=== PATIENT | female | born 1970 | race Caucasian/White ===

== ENCOUNTER → 2023-09-16 14:51 | Outpatient (REF) | payer OTHER, SELFPAY | LOC: HWWDC 14:51 | PROVIDERS: ATTENDING PHYSICIAN Family Medicine | DX: Z12.31 Encounter for screening mammogram for malignant neoplasm of breast (principal) | CPT/HCPCS: 77063; 77067 ==

== ENCOUNTER → 2024-01-11 15:58 | Outpatient (REF) | payer OTHER, SELFPAY | LOC: HWRCS 15:58 | PROVIDERS: ATTENDING PHYSICIAN Family Medicine | DX: R01.1 Cardiac murmur, unspecified (principal) | CPT/HCPCS: 93306 ==

== ENCOUNTER → 2024-01-31 09:44 | Outpatient (REF) | payer OTHER, SELFPAY | LOC: RCS 09:44 | PROVIDERS: ATTENDING PHYSICIAN Internal Medicine Cardiovascular Disease; FAMILY PHYSICIAN Family Medicine | DX: I34.0 Nonrheumatic mitral (valve) insufficiency (principal) | CPT/HCPCS: 93017 ==

== ENCOUNTER → 2024-04-06 07:18 | Outpatient (REF) | payer OTHER, SELFPAY | LOC: HWRCS 07:18 | PROVIDERS: ATTENDING PHYSICIAN Internal Medicine Cardiovascular Disease; FAMILY PHYSICIAN Family Medicine | DX: I42.1 Obstructive hypertrophic cardiomyopathy (principal) | CPT/HCPCS: 93306 ==

== ENCOUNTER → 2024-08-18 13:13 | Outpatient (REF) | payer OTHER, SELFPAY | LOC: HWRCS 13:13 | PROVIDERS: ATTENDING PHYSICIAN Internal Medicine Cardiovascular Disease; FAMILY PHYSICIAN Family Medicine | DX: I42.1 Obstructive hypertrophic cardiomyopathy (principal) | CPT/HCPCS: 93306 ==

== ENCOUNTER 2024-11-15 07:59 | Day surgery (SDC) | payer OTHER, SELFPAY ==
[2024-11-15] VITALS (7 sets, daily range): BP systolic 122–144; BP diastolic 59–73
[2024-11-15] MEDS: NSS 240 ML IV (08:39)
--- NOTE | 2024-11-15 11:23 | ITS.CL.CATH ---
Manager Of Training And Development - Catheterization
Cardiac Catheterization
Procedure Report:
CARDIAC CATHETERIZATION REPORT
Date of Procedure: 11/15/2024
Referring: Manolo Coker M.D.
INDICATION: Hypertrophic obstructive cardiomyopathy with systolic anterior motion and severe mitral regurgitation, preoperative assessment.
PROCEDURE:
1. Left heart catheterization.
2. Left ventriculography.
3. Coronary angiography.
A total of 34 minutes of procedural/moderate sedation was utilized. An independent medical researcher was present to assist with and help manage the patient's level of consciousness and physiologic status.
ACCESS:
1. 6 [place]i right radial artery using a modified Seldinger technique.
CATHETERS:
1. 5 [place] JR4.
2. 5 [place] JL 3.5.
3. 5 [place] angled pigtail.
HEMODYNAMIC DATA
Weight (kg): 79.4
AO (s/d/x, mmHg): 125/70/92
LV (s/x mmHg): 205/14 (A wave to 40); a mid cavitary gradient is observed on slow catheter pullback with no significant gradient between the LVOT, aortic valve and aortic root.
LVOT (s/x mmHg): 125/14 (A wave to 40)
LEFT VENTRICULOGRAPHY: Performed in an KNIGHT projection. Normal left ventricular size with hyperdynamic function with evidence of mid cavitary obliteration. There are no regional wall motion abnormalities. There is severe mitral valve
regurgitation. There is no aortic valve insufficiency. The aortic root, visualized ascending and descending aorta appear normal.
CORONARY ANGIOGRAPHY
Dominance: Right.
Left Main: Short, wide, bifurcating vessel with no coronary artery disease.
LAD: Large size vessel giving rise to 1 large diagonal. 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 There is no coronary artery disease.
Ramus: Congenitally absent.
Circumflex: Large size, nondominant vessel giving rise to 1 large obtuse marginal before terminating as a small to medium size left posterolateral branch. There is no coronary artery disease. The obtuse marginal is moderate to severely tortuous.
RCA: Large size, dominant vessel. The distal RCA and RPDA are severely tortuous. There is no coronary artery disease.
INTERVENTION(S)
None.
Closure Device: Vascular band.
Radiation (mGy): 272.83
DAP (cm2.Gy): 24.2534
Fluoroscopy time (minutes): 3.5
CONCLUSIONS
1. 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
2. Severe mitral valve regurgitation.
3. Mildly elevated filling pressures (LVEDP = 14 mmHg at 79.4 kg) with evidence of severe diastolic dysfunction (A wave to 40 mmHg).
4. Normal left ventricular size with hyperdynamic function and evidence of mid cavitary obliteration on left ventriculography, confirmed with mid cavitary gradient observed on slow pullback of catheter. There is no significant gradient between the
LVOT, aortic valve and aortic root.
RECOMMENDATIONS:
1. Expectant management after cardiac catheterization via right radial approach.
2. Limited weight bearing on the right wrist for one week.
3. Continue surgical planning for myomectomy and possible mitral valve repair.
Copy to: Fer Saravia M.D., Manolo Coker M.D., Rita Zamarripa M.D.
Delfino Olivo DO, FACC, FACP
== END 2024-11-15 12:45 | disposition home or self-care (01) ==
LOC: CATH 07:59
PROVIDERS: ATTENDING PHYSICIAN Internal Medicine Cardiovascular Disease; FAMILY PHYSICIAN Family Medicine; OTHER PHYSICIAN Internal Medicine Cardiovascular Disease
DX: I42.1 Obstructive hypertrophic cardiomyopathy (principal); I34.0 Nonrheumatic mitral (valve) insufficiency; G43.009 Migraine without aura, not intractable, without status migrainosus; F41.9 Anxiety disorder, unspecified; Z79.85 Long-term (current) use of injectable non-insulin antidiabetic drugs; Z79.82 Long term (current) use of aspirin
CPT/HCPCS: 99152; 99153; C1894; 93005; 93458; Q9967

== ENCOUNTER 2024-11-21 04:56 | Inpatient (IN) | payer OTHER, SELFPAY ==
[2024-11-14 12:18] VITALS: BMI 28.2
[2024-11-14 13:05] LABS: Hematocrit 33.7 % (37.0-47.0); Hemoglobin 11.8 g/dL (12.0-16.0); Mean Corp Hgb Conc. 35.0 g/dL (33.0-37.0); Mean Corpuscular Volume 88.0 fL (81.0-99.0); Nucleated Red Blood Cells % 0 %; Platelet Count 182 10^3/uL (130-400); Red Cell Dist. Width 12.1 % (11.5-14.5)
[2024-11-14 13:09] LABS: Urine Character Clear (Clear)
[2024-11-14 13:16] LABS: Urine Red Blood Cell 0-2 /HPF (0-2); Urine White Cell 0-2 /HPF (0-5)
[2024-11-14 13:17] LABS: INR 0.96; PT 13.1 Sec (11.4-14.6)
[2024-11-14 14:21] LABS: Glycohemoglobin (HgbA1c) 4.4 % (4.0-5.6)
--- NOTE | 2024-11-14 14:40 | CM ---
Met with Mrs. Treviño in [facility]. She states she resides with her spouse and daughter in a two story home with two steps to enter. She states she has a full flight of steps to get to bedroom/full bathroom. She states she has a powder room on the
fist floor. She states prior to admission she was independent with ambulation and adls. She states she does not have any DME in the home. She states she has a prescription plan. She states her spouse will be home to assist in her care if needed.
She states her 26 year old daughter is here visiting and she will also be home to assist in her care if needed. The discharge plan is to return home with her spouse and daughter and a home visit by the Transitional Care Nurse when medically stable.
We reviewed pre-op and post-op routines. We reviewed the shower instructions. She has the soap, written instructions and the Cardiothoracic Surgery Educational Booklet. We also reviewed restrictions including sternal precautions and driving
restrictions. We discussed a home visit by the Cardiothoracic Transitional Care Nurse. She is agreeable to a home visit. The plan is for Septal Myectomy on Wednesday11/21/2024.
[2024-11-14 14:45] LABS: ALT (SGPT) 12 U/L (0-35); AST (SGOT) 25 U/L (14-36); Albumin 4.1 g/dl (3.5-5.0); Alkaline Phosphatase 60 U/L (38-126); Blood Urea Nitrogen 11 mg/dl (7-17); Calcium 9.1 mg/dl (8.4-10.2); Carbon Dioxide 27 mmol/L (22-30); Chloride 99 mmol/L (98-107); Estimated Creatinine Clearance 119 ml/min; Glucose 71 mg/dl (70-99); Potassium 4.8 mmol/L (3.5-5.1); Sodium 131 mmol/L (135-145); Total Protein 6.5 g/dl (6.3-8.2); eGFR > 60.00
[2024-11-21] VITALS (13 sets, daily range): BP systolic 89–144; BP diastolic 56–71; BMI 26.8
[2024-11-21] MEDS: MAGNESIUM OXIDE 500 MG PO (05:24)
[2024-11-21] MEDS: PROTONIX 40 MG PO (05:24)
[2024-11-21] MEDS: BACTROBAN 2% OINTMENT 1 APPLIC NASAL ×2 (05:24→20:49)
--- NOTE | 2024-11-21 05:35 | PTCARENOTE ---
pt admitted into CVICU 2262. pt confirmed 2 showers at home. pt clipped and prepped for CVOR. CHG wipes. pre-op meds given. pre-op education provided. all questions answered. head correction officer to CVOR.
[2024-11-21] MEDS: LOPRESSOR 12.5 MG PO (06:13)
--- NOTE | 2024-11-21 06:15 | W.CVOR.SURPR ---
CVOR Surgeon Immed Pre Op
-
I have examined this patient prior to performance of the scheduled procedure.
The patient's condition is unchanged from the time of the dictated/written History and
Physical and the patient is able to undergo the scheduled procedure.
Septal Myectomy for Severe LVOT gradient and CASSIE with Severe MR +/- MVrR
[2024-11-21 07:32] LABS: Urine Character Clear (Clear)
[2024-11-21 07:34] LABS: ACT+ - POC 98 Seconds (82-134)
--- NOTE | 2024-11-21 08:08 | CM ---
pt in OR today, cm to follow
[2024-11-21 08:30] LABS: B.E. - POC 0.4 mmol/L; Glucose - POC 85 mg/dl (70-99); HCO3 - POC 25 mmol/L (21-28); Hematocrit - POC 28 % PCV (37-47); Hemodilution- POC No; Hemoglobin Calculated - POC 9.4; Ionized Calcium - POC 1.20 mmol/L (1.15-1.33); Lactate - POC < 0.30 mmol/L (0.36-0.75); O2 Saturation %Calculated-POC 100.0 % (94-98); PCO2 - POC 39 mmHg (35-48); PO2 - POC 451 mmHg (83-108); Potassium - POC 3.5 mmol/L (3.5-5.1); Sodium - POC 140 mmol/L (136-145); Specimen Type - POC Arterial; pH - POC 7.41 (7.35-7.45)
[2024-11-21 08:32] LABS: ACT+ - POC > 1003 Seconds (82-134)
[2024-11-21 08:51] LABS: ACT+ - POC 963 Seconds (82-134)
[2024-11-21 09:06] LABS: ACT+ - POC 861 Seconds (82-134)
[2024-11-21 09:22] LABS: ACT+ - POC 748 Seconds (82-134)
[2024-11-21] MEDS: ANCEF 10 IV ×2 (09:37→12:03)
[2024-11-21 09:39] LABS: B.E. - POC 2.1 mmol/L; Glucose - POC 113 mg/dl (70-99); HCO3 - POC 27 mmol/L (21-28); Hematocrit - POC 27 % PCV (37-47); Hemodilution- POC Yes; Hemoglobin Calculated - POC 9.3; Ionized Calcium - POC 1.08 mmol/L (1.15-1.33); Lactate - POC 0.51 mmol/L (0.36-0.75); O2 Saturation %Calculated-POC 99.9 % (94-98); PCO2 - POC 42 mmHg (35-48); PO2 - POC 313 mmHg (83-108); POC Comment WARM; Potassium - POC 5.0 mmol/L (3.5-5.1); Sodium - POC 141 mmol/L (136-145); Specimen Type - POC Arterial; pH - POC 7.42 (7.35-7.45)
[2024-11-21 09:44] LABS: ACT+ - POC 120 Seconds (82-134)
[2024-11-21 10:16] LABS: B.E. - POC 6.4 mmol/L; Glucose - POC 93 mg/dl (70-99); HCO3 - POC 29 mmol/L (21-28); Hematocrit - POC 26 % PCV (37-47); Hemodilution- POC Yes; Hemoglobin Calculated - POC 9.0; Ionized Calcium - POC 1.06 mmol/L (1.15-1.33); Lactate - POC < 0.30 mmol/L (0.36-0.75); O2 Saturation %Calculated-POC 100.0 % (94-98); PCO2 - POC 33 mmHg (35-48); PO2 - POC 481 mmHg (83-108); POC Comment CPB; Potassium - POC 3.6 mmol/L (3.5-5.1); Sodium - POC 140 mmol/L (136-145); Specimen Type - POC Arterial; pH - POC 7.55 (7.35-7.45)
[2024-11-21 10:17] LABS: B.E. - POC 3.3 mmol/L; Glucose - POC 87 mg/dl (70-99); HCO3 - POC 28 mmol/L (21-28); Hematocrit - POC 27 % PCV (37-47); Hemodilution- POC Yes; Hemoglobin Calculated - POC 9.3; Ionized Calcium - POC 1.08 mmol/L (1.15-1.33); Lactate - POC < 0.30 mmol/L (0.36-0.75); O2 Saturation %Calculated-POC 100.0 % (94-98); PCO2 - POC 40 mmHg (35-48); PO2 - POC 352 mmHg (83-108); POC Comment CPB; Potassium - POC 4.1 mmol/L (3.5-5.1); Sodium - POC 140 mmol/L (136-145); Specimen Type - POC Arterial; pH - POC 7.45 (7.35-7.45)
--- NOTE | 2024-11-21 10:21 | W.PN.CT.SURG ---
CT Surgery Operative Note
-
CARDIAC SURGERY OPERATIVE REPORT
Preoperative Diagnosis: HOCM with LVOT obstruction and severe gradients, systolic anterior motion of the mitral valve with severe insufficiency
Postoperative Diagnosis: Same
Procedure(s) Performed:
1. Standard sternotomy with aortic and bicaval cannulation
2. Septal myectomy through the aortic root (resected a 1 cm deep x 3 cm long by 2 cm wide segment of muscle)
3. Radical mitral valve repair through the aortic root [resection of secondary cords on the anterior leaflet and placement of a Star Tannery-John suture from the most posterior papillary muscle head to the free margin of the anterior leaflet]
4. Placement temporary atrial ventricular pacing wires
5. Transesophageal echocardiography
Date of Surgery: 11/21/2024
Comorbidities:
1. Hypertrophic obstructive cardiomyopathy
2. Systolic anterior motion of the mitral valve
3. Severe LVOT gradient of over 100mmHg during provocation
4. Severe mitral valve insufficiency secondary to CASSIE
5. Depression/anxiety
6. Migraines
7. Family history of premature related to cardiovascular disease
Attending Surgeon: Fer Saravia MD, MS
Assistants: PARI Trotter (present and necessary to care assistant, retraction, suction, exposure, suture management, and wound closure under my direction)
Anesthesiology: Rogelio Robbins MD and Kong Schwab CRNA
Scrub and Circulating RNs: Nikhil Miller RN, Gopi Adkins RN
Asbestos Siding Installer: Radha Nelson CCP
Anesthesia: GETA
EBL: per perfusion records
Products: 1 prbc
CPB Time: 57 minutes
Aortic Cross Clamp Time: 39 minutes
Indication(s) for Procedures: This is a 52-year-old female with no significant medical history has been experiencing more lightheadedness and shortness of breath. She has known hypertrophic obstructive cardiomyopathy with worsening LVOT gradients
on serial echocardiograms. The most recent LVOT gradient had a resting mean gradient of 91 mmHg and a provoked gradient of well over 100 mmHg. She had associated systolic anterior motion of mitral valve leaflets with severe mitral valve
insufficiency. Given her findings, she was referred for consideration of septal myectomy and possible mitral valve repair.
Aortic Valve Description: Normal leaflets, left and right coronary ostia normal anatomic positions. The LVOT had evidence of scarring on the septal aspect from repeated collision to the antilipid the mitral valve.
Mitral Valve Description: Thickened anterior leaflet of the mitral valve with multiple secondary cords.
Findings: Her left ventricular ejection fraction preoperatively was 65% with no significant regional wall motion abnormalities. She did have moderate to severe left ventricular hypertrophy that was concentric with a large prominent septal bulge
that measured over 2 cm in thickness. Additionally her papillary muscle heads appeared to be somewhat displaced from a normal anatomic position. She had evidence of systolic anterior motion of the anterior leaflet and normal pressures. Her LVOT
gradient while under anesthesia here was not impressive. I performed an aortotomy and then place a single silk suture underneath the right coronary cusp in order to retract out of the way. Using a 10 blade an aggressive myectomy was performed
while pushing pressure anteriorly on the heart downward. The resection was carried down to approximately 3 cm in length and 2 cm wide. The mitral valve was assessed and secondary cords upon the anterior leaflet were resected. The LVOT was
thoroughly irrigated in order to move any debris. The right heart was then filled in order to assess for any iatrogenic VSD and none was found. After I felt the myectomy was adequate, I placed a single Star Tannery-John suture to the most posterior
palpated muscle head I could find and anchored it to the anterior leaflet at the free margin at A2. The aortotomy was closed in 2 layers in the usual fashion. After coming off cardiopulmonary bypass, there was no systolic anterior motion of the
mitral valve leaflets, there was trace mitral valve insufficiency, and the turbulence across the LVOT appeared to be significantly improved. We then looked carefully for ventricular septal defect and then was found. There was some intracardiac
flow of septal perforating vessels that were cut as part of the myectomy which was expected. Given that she was anemic preoperatively I did give her 1 unit of PRBCs on pump. A&V wires were placed and were tested however that she did not require
pacing as she regained her elem sinus rhythm. No inotropic support was required. She was started preemptively on amiodarone for rate suppression. There was 1 ventricular fibrillation event likely secondary to air entrainment to the right
coronary ostium. Once blood pressure was driven up this resolved and RV function was normal. No defibrillation was required.
Specimen(s): Septal myocardium.
Prosthesis:
1. Single CV 4 Star Tannery-John
Description of Procedure: The patient was taken to the operating room. Their identity and procedure to be performed were verified and they were positioned supine on the operating table. Induction via general anesthesia with endotracheal intubation
was performed and central venous access and arterial monitoring were inserted. A preoperative transesophageal echocardiogram was performed to assess cardiac function and valvular function. The patient was then prepped and draped from chin to feet in
a sterile fashion. A preoperative time-out was performed with all members of the team present. A midline chest incision was performed along with median sternotomy. The innominate vein was isolated. Full heparinization was given (a total of 45,000
units). We created a pericardial well. The aortic cannulation site was chosen where it was soft, pliable, and free of calcium. Cannulation was performed with an arterial cannula in the ascending aorta, angled metal tip cannular in the superior vena
cava and straight bendable cannula in the inferior vena cava. The arterial cannula line had an appropriate bounce and correlating pressures. Next, a root vent/antegrade cannula was inserted into the ascending aorta. The ACT was confirmed to be over
400 and retrograde autologous priming was performed before commencing cardiopulmonary bypass. The pulmonary artery was away from the aorta to facilitate a clamp site. Sondergaard�s groove was developed after creating the oblique sinus. A
left ventricular vent was placed at the right superior pulmonary vein. The aortic cross-clamp was placed after decreasing the flow on the bypass and mean arterial pressure. A total of 1.2L initial dose of antegrade Del-Nido cardioplegia solution was
given and planned for re-dosing every 75 minutes as necessary. There was rapid electro-mechanical arrest of the heart at 450 cc of cardioplegia. The left ventricle was observed for distention on echocardiogram and manual palpation. Cold slush was
placed into a lap on the RV and we systemically cooled to 34 degrees centigrade.
Carbon dioxide was used to flood the field. We manually identified the location of the right coronary take off. An aortotomy was made approximately 2cm above the sinotubular junction. The location of both left and right coronary vessels were
visualized in the root. A single silk suture was then placed below the jd of the right coronary cusp in order to retract the leaflet out of the way. A sponge stick was then placed on the anterior surface of the heart and gently pushed down
posteriorly. Using a 10 blade, I directly incised the septum in 2 [address] and then use scissors in order to resect the rest of the myocardial tissue to a length of approximately 3 cm. Additional resection was then performed until I obtained
approximate 1 cm in depth and 2 cm wide. The mitral valve was then inspected and there were multiple secondary cords to the under/ventricular surface of the mitral valve. These were then resected. In order to promote a more posterior coaptation
line, a single CV 4 Star Tannery-John was then placed to the most posterior papillary muscle head I could find and anchored to the anterior leaflet of the mitral valve at the free margin. I used surrounding cords in order to estimate the length. Next the
leaflets of the aortic valve were then inspected to ensure that there was no iatrogenic injuries. I also filled the heart in order to inspect for an iatrogenic ventricular septal defect and then was found. The aortotomy was then closed in 2 layers
using 4-0 Prolene in the usual fashion.
De-airing maneuvers were performed and temporary atrial and ventricular pacing wires were placed at the SVC/RA junction and base of the right ventricle, respectively. The patient was placed in a Trendelenburg position and flows on bypass were
lowered. The aortic cross clamp was removed and flows were slowly brought back up. The left atrial suture line was hemostatic. Transesophageal echocardiography revealed no evidence of systolic anterior motion and ventricular function was normal.
There was no obvious ventricular septal defect seen. There was some perforating vessels in the septum that had flow into the LV during diastole which was expected. Once de-airing was satisfactory the left ventricular and root vents were removed.
After verifying acceptable parameters, we initiated weaning from cardiopulmonary bypass. Once we were off cardiopulmonary bypass, the venous cannulas was clamped and removed sequentially. A test dose of protamine was administered and the patient was
monitored for any adverse reaction before resuming protamine. Once half of the protamine dose was delivered, pump suckers were turned off and the systolic blood pressure was lowered for aortic decannulation. The aortic cannula was removed and purse
strings were tied down. All cannulation sites were oversewn with a 4-0 prolene. The left atrial suture line was inspected and hemostasis was confirmed. Mediastinal hemostasis was obtained. Two #24 Marty drains were placed within the pericardium. The
sternum was approximated with 4 #7 single and 3 #8 double stainless steel wires. Fascia was approximated with #1 vicryl suture. The subcutaneous, dermis and epidermis were closed in layers in a running fashion. The skin wound was cleansed and
dressed.
All instrument, sponge, and needle counts were confirmed to be correct x 2 at the end of the operation. The patient was transferred to the cardiac intensive care unit in critical but stable condition.
I, Dr. Fer Saravia, was present, scrubbed for, and performed all critical elements of this procedure.
Fer Saravia MD, MS
Cardiothoracic Surgeon
[facility]
This dictation was created using the [employer] dictation system. Please excuse any grammatical, typographical, or 'sound alike' errors
[2024-11-21 10:29] LABS: B.E. - POC 3.4 mmol/L; Glucose - POC 96 mg/dl (70-99); HCO3 - POC 27 mmol/L (21-28); Hematocrit - POC 25 % PCV (37-47); Hemodilution- POC Yes; Hemoglobin Calculated - POC 8.4; Ionized Calcium - POC 1.29 mmol/L (1.15-1.33); Lactate - POC < 0.30 mmol/L (0.36-0.75); O2 Saturation %Calculated-POC 100.0 % (94-98); PCO2 - POC 37 mmHg (35-48); PO2 - POC 508 mmHg (83-108); POC Comment POST; Potassium - POC 3.7 mmol/L (3.5-5.1); Sodium - POC 142 mmol/L (136-145); Specimen Type - POC Arterial; pH - POC 7.48 (7.35-7.45)
[2024-11-21 11:00] LABS: Glucose - Point of Care 146 mg/dl (70-99)
[2024-11-21 11:09] LABS: Hematocrit 29.4 % (37.0-47.0); Hemoglobin 10.6 g/dL (12.0-16.0); Platelet Count 123 10^3/uL (130-400)
[2024-11-21 11:10] LABS: B.E. -1.1 mmol/L; HCO3 23.5 mmol/L (21-28); O2 Saturation % 99.7 % (94-98); PCO2 38 mmHg (32-35); PO2 103 mmHg (83-108); Potassium 4.1 mMOL/L (3.5-5.1); Sodium 135 mMOL/L (136-145)
--- NOTE | 2024-11-21 11:10 | PTCARENOTE ---
received patient from CVOR sedated and placed on vent by TERMINAL BLOCK ASSEMBLER. Out with usual lines, CTx2 to -20 suction. no air leaks/crepitus. draining red. AV wires present. not connected to box. SB/SR on monitor. #8ETT @23 lip. SIMV 14/460/+5/40%. Pulse ox 96%.
bhatia draining yellow urine. bowel sounds hypoactive. pulses weakly palpable. CXR. EKG done bedside labs drawn and sent. insulin per glyc protocol. levo, amio and vaso infusing. will continue to monitor.
[2024-11-21 11:20] LABS: APTT 30.4 Sec (23.4-35.0); INR 1.38; PT 17.2 Sec (11.4-14.6)
[2024-11-21 11:24] LABS: Blood Urea Nitrogen 10 mg/dl (7-17); Estimated Creatinine Clearance 109 ml/min; Glucose 128 mg/dl (70-99); Magnesium 2.5 mg/dl (1.6-2.3)
--- NOTE | 2024-11-21 11:30 | CON.INTV ---
Consultation
Consultation Request
Date/Time Consultation Requested: 11/21
Date/Time Consultation Performed: 11/21
Reason for Consultation: Critical care
Medical History
-
History of Present Illness:
History obtained from the chart as patient is currently intubated and sedated. Patient is a 54-year-old female with history of hypertrophic obstructive cardiomyopathy, mitral valve regurgitation. Preadmission symptoms included presyncopal
symptoms, fatigue, palpitations which have been worsening over the last year. Echocardiogram revealed severe thickening of the interventricular septum, about 2.56 cm. Patient is status post sternotomy with septal myectomy, radical mitral valve
repair 11/21/2024. We are asked to help from critical care standpoint.
Presently, patient is on volume-cycled ventilation, adequate oxygenation. Chest x-ray without acute findings. Received 1 unit of blood intraoperatively. Also on amiodarone for transient VF intraoperatively.
.
PMH: History of x 2. History of neuropathy, anxiety
Past Medical History
Past Medical History: None (See above)
Past Surgical History: None (See above)
Social History
Tobacco: Non-smoker
Alcohol: Occasional
Drug: None
Personal:
Living: With Family
Employment: Employed ([employer])
Family History
Family History: Other (5 daughters healthy. Family history of cardiovascular disease, diabetes)
Allergies / Home Medications
Allergies
Allergy/AdvReac Type Severity Reaction Status Date / Time
No Known Allergies Allergy Verified 11/15/24 08:49
Home Medications
�Medication �Instructions �Recorded �Confirmed �Last Taken �Type
zolpidem 5 mg tablet 5 mg PO HSPRN PRN sleep 04/24/11 11/21/24 11/20/24 22:00 History
aspirin 81 mg tablet,delayed 81 mg PO DAILY 11/13/24 11/21/24 11/20/24 08:00 History
release
duloxetine 30 mg capsule,delayed 150 mg PO DAILY 11/13/24 11/21/24 11/20/24 08:00 History
release
melatonin 10 mg tablet 15 mg PO HS 11/13/24 11/21/24 11/20/24 22:00 History
metoprolol succinate 25 mg 25 mg PO DAILY 11/13/24 11/21/24 11/20/24 08:00 History
tablet,extended release 24 hr
tirzepatide (weight loss) 15 15 mg SC QWEEK 11/13/24 11/21/24 11/07/24 History
mg/0.5 mL subcutaneous pen
injector (Zepbound)
Review of Systems
-
Unable to Obtain full review of systems at this time due to: Patient Intubation
Vitals / Labs / Diagnostic Testing
Vital Signs
Temp Pulse Resp BP Pulse Ox
98.1 F 63 14 116/62 97
11/21/24 05:06 11/21/24 11:25 11/21/24 11:25 11/21/24 06:13 11/21/24 10:55
Lab Data
11/21/24 10:53
Laboratory Results
11/21/24
10:53
PT 17.2 H
INR 1.38
APTT 30.4
pH 7.40
pCO2 38 H
pO2 103
HCO3 23.5
O2 Delivery Level Not Reportable
Diagnostic Testing:
Physical Exam
-
HEENT: Normocephalic and Other (Right IJ, upper extremity alignment, chest tube)
Cardiovascular: S1/S2, Regular Rhythm, Murmur (n) and Peripheral Edema (n)
Respiratory: Wheeze (n), Rales (n), Rhonchi (n), Non-Labored Respirations and Other (ET tube)
GI: Soft and Non Distended
Neurology: Other (Sedated, does open eyes with stimulation)
Skin: Other (No rash, no cyanosis)
General: Comfortable
Assessment
-
54-year-old female with history of fatigue, palpitations, shortness of breath progressive times in the ER found to have significant hypertrophic interventricular septum, and mitral valve disease, now status post mitral valve repair and septal
myectomy 11/21/2024
S/p septal myectomy, mitral valve repair 11/21/2024
Severe asymmetric septal hypertrophy
Increased gradient of 91 at rest, increased at 131 with Valsalva
Moderate to severe mitral regurgitation
Progressive symptoms x 1 year
Intraoperative VF, self-resolving
On amiodarone
Status post intraoperative transfusion, 1 unit
Left bundle branch block postoperative EKG
Conditions present prior to admission
Hypertension
Anxiety
Insomnia
Plan/recommendations
At this time, patient remains critically ill but stable
Hemodynamically stable, systolic pressure 130s to 150s
Remains on volume cycle ventilation, FiO2 being weaned
Patient is waking up, opening eyes
ABG with adequate oxygenation/ventilation
Chest x-ray without acute findings
EKG with left bundle branch block
Patient received 1 unit of blood intraoperatively
Presently on amiodarone, transient VF intraoperatively
Moving forward
Continue with management per CT surgery
Anticipate extubation later today
Follow hemoglobin
Follow chest tube output
Head of bed elevated postextubation as able
Reviewed with critical care nursing
Will follow
TCCT 32 min
[2024-11-21 12:01] LABS: Glucose - Point of Care 83 mg/dl (70-99)
[2024-11-21] MEDS: NEURONTIN PO (12:04)
[2024-11-21] MEDS: NSS 500 IV (12:04)
[2024-11-21] MEDS: CYMBALTA DELAYED RELEASE PO (12:04)
[2024-11-21] MEDS: ALBUMIN 5% 250 IV (12:23)
[2024-11-21] MEDS: TYLENOL PO (12:24)
[2024-11-21 13:01] LABS: Glucose - Point of Care 81 mg/dl (70-99)
[2024-11-21 14:25] LABS: Glucose - Point of Care 85 mg/dl (70-99)
--- NOTE | 2024-11-21 14:44 | PTCARENOTE ---
placed on CPAP wean by ARCHITECTURAL ENGINEER.
[2024-11-21 14:48] LABS: Hematocrit 26.6 % (37.0-47.0); Hemoglobin 9.7 g/dL (12.0-16.0); Platelet Count 127 10^3/uL (130-400)
--- NOTE | 2024-11-21 14:49 | PTCARENOTE ---
received total 1L LR and 250 albumin. VSS.
[2024-11-21 15:17] LABS: B.E. - POC 0.0 mmol/L; Blood Urea Nitrogen - POC 11 mg/dl (3-120); Chloride - POC 107 mmol/L (96-111); Creatinine - POC 0.76 mg/dl (0.3-1.0); Glucose - POC 182 mg/dl (70-99); HCO3 - POC 26 mmol/L (21-28); Hematocrit - POC 26 % PCV (37-47); Hemodilution- POC No; Hemoglobin Calculated - POC 8.7; Ionized Calcium - POC 1.19 mmol/L (1.15-1.33); Lactate - POC 1.07 mmol/L (0.36-0.75); O2 Saturation %Calculated-POC 99.1 % (94-98); PCO2 - POC 48 mmHg (35-48); PO2 - POC 144 mmHg (83-108); Potassium - POC 3.9 mmol/L (3.5-5.1); Sodium - POC 142 mmol/L (136-145); Specimen Type - POC Arterial; pH - POC 7.34 (7.35-7.45)
[2024-11-21] MEDS: LR 1000 IV (15:24)
[2024-11-21] MEDS: DILAUDID 0.5 MG IV (15:25)
--- NOTE | 2024-11-21 15:31 | RESPNOTE ---
Extubated to 6 liter NC without incident-- HR 66 SAT 99% IS 750mL, BS clear and diminished
--- NOTE | 2024-11-21 15:36 | PTCARENOTE ---
extubated 1530 with CONTACT ASSEMBLER to 6L nc.
[2024-11-21 15:41] LABS: Glucose - Point of Care 202 mg/dl (70-99)
[2024-11-21] MEDS: NEURONTIN 100 MG PO ×2 (16:19→21:09)
[2024-11-21] MEDS: LOW STRENGTH ASPIRIN 81 MG PO (16:20)
[2024-11-21] MEDS: PACERONE 200 MG PO (16:22)
[2024-11-21 16:26] LABS: Glucose - Point of Care 136 mg/dl (70-99)
[2024-11-21] MEDS: PITRESSIN 100 IV (17:31)
[2024-11-21] MEDS: ANCEF 5 IV (18:31)
[2024-11-21 18:35] LABS: Glucose - Point of Care 87 mg/dl (70-99)
--- NOTE | 2024-11-21 19:40 | PTCARENOTE ---
Patient received from RN @ 1900. Patient lying in bed w/ call queen in reach. AOx3. Sinus bradycardia on monitor. BP 103/61. HR 54. Heart sounds audible. Radial and pedal pulses present. Trace edema bilaterally in feet. A/V wires present but
not connected due to inappropriate pacing. Lungs diminished bilaterally in bases. POX 100% RA. 2x mediastinal CT set to -20 suction draining red fluid. No crepitus, tidaling, or air leaks noted. IS 750. Bowel sounds hypoactive. Tolerating
sips of water and ice chips. Cano draining clear yellow urine. Sternal incision well approximated SANITARIAN AIDE. RIJ cordis w/ swan @ 40 PAP 28/14 CVP 11. Left radial A-line. All lines leveled and zeroed. Right PIV patent and intact. Vaso, Levo,
Insulin, LR, and Amio infusing per order. See worklist for more information.
--- NOTE | 2024-11-21 19:40 | PTCARENOTE ---
Patient received from RN @ 1900. Patient lying in bed w/ call queen in reach. AOx3. Sinus bradycardia on monitor. BP 103/61. HR 54. Heart sounds audible. Radial and pedal pulses present. Trace edema bilaterally in feet. A/V wires present but
not connected due to inappropriate pacing. Lungs diminished bilaterally in bases. POX 100% 2L NC. 2x mediastinal CT set to -20 suction draining red fluid. No crepitus, tidaling, or air leaks noted. IS 750. Bowel sounds hypoactive. Tolerating
sips of water and ice chips. Cano draining clear yellow urine. Sternal incision well approximated PAIRER ODDS. RIJ cordis w/ swan @ 40 PAP 28/14 CVP 11. Left radial A-line. All lines leveled and zeroed. Right PIV patent and intact. Vaso, Levo,
Insulin, LR, and Amio infusing per order. See worklist for more information.
[2024-11-21 20:00] LABS: B.E. -1.4 mmol/L; HCO3 24.3 mmol/L (21-28); O2 Saturation % 99.7 % (94-98); PCO2 44 mmHg (32-35); PO2 158 mmHg (83-108); Potassium 4.1 mMOL/L (3.5-5.1)
[2024-11-21] MEDS: SENOKOT-S 1 TABLET PO (20:49)
[2024-11-21 20:56] LABS: Glucose - Point of Care 106 mg/dl (70-99)
[2024-11-21] MEDS: CALCIUM GLUCONATE 130 MG IV (21:07)
[2024-11-21] MEDS: MELATONIN 15 MG PO (21:09)
[2024-11-21] MEDS: TYLENOL 1000 MG PO (21:09)
[2024-11-21] MEDS: PACERONE PO (21:13)
[2024-11-21] MEDS: DILAUDID 0.25 MG IV (22:21)
[2024-11-21 22:59] LABS: Glucose - Point of Care 121 mg/dl (70-99)
--- NOTE | 2024-11-21 23:17 | PTCARENOTE ---
Patient reassessed. Sinus bradycardia w/ prolonged QT on monitor. BP 115/65 HR 53 POX 100%. Patient washed w/ CHG and leads changed. 4 beats of V-tach noted @ 2315 CT PA Ed aware.
[2024-11-22] VITALS (24 sets, daily range): BP systolic 71–125; BP diastolic 45–82; PULSE 66; O2SAT 97; BMI 28.2
[2024-11-22] MEDS: PITRESSIN 100 IV (00:18)
[2024-11-22] MEDS: ANCEF 5 IV ×2 (00:38→10:50)
[2024-11-22] MEDS: NOVOLIN R INSULIN INFUSION 100 IV (00:39)
[2024-11-22 00:48] LABS: Glucose - Point of Care 78 mg/dl (70-99)
[2024-11-22] MEDS: ROXICODONE 5 MG PO ×4 (01:25→22:43)
[2024-11-22] MEDS: DILAUDID 0.5 MG IV ×5 (02:30→21:40)
--- NOTE | 2024-11-22 02:35 | DOWNTIME ---
There was a [employer] Downtime on 11/22/2024 from 0100 to 11/22/2024 at 0235. Downtime documentation of patient's care, including medication administrations, has been reconciled in the electronic record per guidelines. Refer to the
patient's paper chart under the miscellaneous tab to see printed paper medication records and downtime forms.
[2024-11-22 02:59] LABS: Glucose - Point of Care 111 mg/dl (70-99)
[2024-11-22 03:39] LABS: Hematocrit 23.3 % (37.0-47.0); Hemoglobin 8.1 g/dL (12.0-16.0); Mean Corp Hgb Conc. 34.8 g/dL (33.0-37.0); Mean Corpuscular Volume 88.6 fL (81.0-99.0); Platelet Count 127 10^3/uL (130-400); Red Cell Dist. Width 12.5 % (11.5-14.5)
[2024-11-22 04:00] LABS: Blood Urea Nitrogen 10 mg/dl (7-17); Calcium 8.2 mg/dl (8.4-10.2); Carbon Dioxide 24 mmol/L (22-30); Chloride 105 mmol/L (98-107); Estimated Creatinine Clearance 109 ml/min; Glucose 187 mg/dl (70-99); Magnesium 1.6 mg/dl (1.6-2.3); Potassium 4.0 mmol/L (3.5-5.1); Sodium 131 mmol/L (135-145); eGFR > 60.00
[2024-11-22 04:01] LABS: Glucose - Point of Care 104 mg/dl (70-99)
--- NOTE | 2024-11-22 04:13 | W.PN.CT ---
Today's Communication / Plan
-
Plan:
-No major issues overnight. Hemodynamically and neurologically intact
-Successfully extubated @ 1532 yesterday 11/21/24
-Weaned off of Levophed and Vasopressin overnight, on Amidarone gtt @ 0.5 and insulin gtt per protocol. LR 1L was infused @ 75 mL/hr overnight -completed
-Last CI 2.74, MVO2 72.6%, u/o since OR 1500 mL
-Placed PO Amiodarone and Lopressor on hold given postop hypotension, bradycardia on amiodarone gtt
-Monitor chest tube drainage: 2 meds 160/445
-Monitor h/h 8.3, likely hemodilutional, received total of 1L LR, 250 mL Albumin
-D/C'd swan and a-line @ 0515
-Will D/C bhatia catheter @ 0600
-Maintain temporary PW (will likely pull tomorrow)
-Will transition off of insulin today, tele phase when off
-Maintain cordis
-Encourage use of IS
-Wean off of O2 as tolerated
-OOB into chair/Ambulate
Assessment / Plan
-
Assessment:
-S/P sternotomy/Septal myectomy through the aortic root (resected a 1 cm deep x 3 cm long by 2 cm wide segment of muscle)/Radical mitral valve repair through the aortic root [resection of secondary cords on the anterior leaflet and placement of a
[place]-John suture from the most posterior papillary muscle head to the free margin of the anterior leaflet], by Dr. Saravia, 11/21/24, pod#1
-Hypertrophic obstructive cardiomyopathy
-Systolic anterior motion of the mitral valve
-Severe LVOT gradient of over 100mmHg during provocation
-Severe mitral valve insufficiency secondary to CASSIE
-LVEF 65%
-Depression/anxiety
-Migraines
-Anemia
-Family history of premature related to cardiovascular disease
-S/P x 2
-Acute postop blood loss Anemia on chronic Anemia (transfused 1uPRBC)
-Acute postop atelectasis
-Acute postop hypovolemia with subsequent hypervolemia
-Acute postop bradycardia, PVC's
Discussed patient care with: Cardiology, Nursing, Respiratory Therapy, Pharmacy and Care Team
Subjective
Procedure
S/P sternotomy/Septal myectomy through the aortic root (resected a 1 cm deep x 3 cm long by 2 cm wide segment of muscle)/Radical mitral valve repair through the aortic root [resection of secondary cords on the anterior leaflet and placement of a
[place]-John suture from the most posterior papillary muscle head to the free margin of the anterior leaflet], by Dr. Saravia, 11/21/24
-
Date of Service: November 22, 2024
Pt c/o incisional pain, otherwise feels well
Objective Data
-
Lab Results
11/22/24 03:17
11/22/24 03:17
PT 17.2 Sec (11.4-14.6) H 11/21/24 10:53
INR 1.38 11/21/24 10:53
APTT 30.4 Sec (23.4-35.0) 11/21/24 10:53
Vital Signs
Vital Signs
Temp Pulse Resp BP Pulse Ox
98.5 F 55 13 113/61 98
11/22/24 04:00 11/22/24 04:00 11/22/24 04:00 11/22/24 04:00 11/22/24 04:00
CT Intake/Output/Weight
11/21/24 11/21/24 11/22/24
06:59 18:59 06:59
Intake Total 2251.4 / 3402.9 1151.5 / 3402.9
Output Total 1440 / 1900 460 / 1900
Balance 811.4 / 1502.9 691.5 / 1502.9
SaO2: 98 (2L)
Physical Exam
-
General: Awake, Oriented and AOx3
Cardiovascular: Regular rate & rhythm (sinus bradycardia), No Murmurs, No Rub and No Gallop
Respiratory: Decreased Breath Sounds (at bases, otherwise clear)
Sternum: Stable
Incision: Clean, Dry, Intact and Dressing Intact
Extremities: Other (+trace edema)
Data Reviewed
-
Lab Results: Results Reviewed
Medications: Active Meds Reviewed
Chest X-Ray: Report Reviewed and Image Reviewed
ECG: Report Reviewed and Image Reviewed
--- NOTE | 2024-11-22 04:25 | PTCARENOTE ---
Patient reassessed. Patient restless and frustrated. Explained to patient our policy and procedures. Sinus braxton on monitor w/ prolonged QT BP 113/61 HR 57 POX 99 2L NC. Labs drawn. EKG obtained. Vaso turned off per CT PA Ed.
[2024-11-22] MEDS: CALCIUM GLUCONATE 130 MG IV (05:18)
[2024-11-22 05:41] LABS: Glucose - Point of Care 90 mg/dl (70-99)
[2024-11-22] MEDS: DILAUDID 0.25 MG IV (05:46)
--- NOTE | 2024-11-22 06:15 | PTCARENOTE ---
Jerome, Booker-miguel, and Cano removed per CT PA Ed. Due to void @ 1200.
[2024-11-22] MEDS: LR IV ×2 (06:19→16:46)
[2024-11-22] MEDS: TYLENOL 1000 MG PO ×3 (06:20→20:55)
--- NOTE | 2024-11-22 06:49 | W.PN.INTV ---
Today's Communication / Plan
Recommendations
Pain control
Insulin drip being weaned off
Follow hemoglobin, transfuse per CT surgery protocol
Once transferred to telemetry, we will sign off. Please call with questions
Assessment
-
54-year-old female with history of fatigue, palpitations, shortness of breath progressive times in the ER found to have significant hypertrophic interventricular septum, and mitral valve disease, now status post mitral valve repair and septal
myectomy 11/21/2024
S/p septal myectomy, mitral valve repair 11/21/2024
Severe asymmetric septal hypertrophy
Increased gradient of 91 at rest, increased at 131 with Valsalva
Moderate to severe mitral regurgitation
Progressive symptoms x 1 year
Intraoperative VF, self-resolving
On amiodarone
Status post intraoperative transfusion, 1 unit
Left bundle branch block postoperative EKG
Conditions present prior to admission
Hypertension
Anxiety
Insomnia
Plan/recommendations
At this time, patient appears comfortable, extubated without difficulty 11/21
Remains on insulin drip, amiodarone drip
Primary complaint is pain
Chest tube drainage minimal
Hemoglobin 8.1, suspect component of dilutional effect
Chest x-ray without acute findings
Moving forward
Continue with management per CT surgery
Pain control, incentive spirometry
Insulin therapy is being weaned
Follow hemoglobin
Transfuse per CT surgery protocol
Follow chest tube output
Head of bed elevated
Reviewed with critical care nursing
Once patient transferred to telemetry, we will sign off. Please call with questions
Subjective Dataa
Subjective Data
Date of Service:
Date of Service: November 22, 2024
Subjective:
Patient primary complaint is splinting, pain from incision. Otherwise without complaints. Multiple family members at bedside
Objective Data
Data Reviewed
Vital Signs / I&O / Oxygen:
Vital Signs
Temp Pulse Resp BP Pulse Ox
98.7 F 61 18 99/82 94
11/22/24 05:54 11/22/24 06:10 11/22/24 06:10 11/22/24 06:02 11/22/24 06:02
Intake and Output
11/20/24 11/21/24 11/22/24
06:59 06:59 06:59
Intake Total 3537.7 / 3537.7
Output Total 2004
Balance 1532.7 / 1532.7
SaO2 [P-SIMV] 97
SaO2 94
Nasal Cannula flow liters per 2
minute
Physical Exam
General: Comfortable
HEENT: Normocephalic
Cardiovascular: S1-S2, Regular Rhythm and Murmur (n)
Respiratory: Wheeze (n), Crackles (n), Rhonchi (n) and Chest Tube
GI: Soft, Non Distended and Non Tender
Neurology: Awake, Alert and No Motor Deficits (Moves all extremities)
Labs/Micro/Reports
Lab Data
11/22/24 03:17
11/22/24 03:17
Laboratory Results
11/21/24 11/21/24 11/21/24
10:53 17:33 19:48
PT 17.2 H
INR 1.38
APTT 30.4
pH 7.40 Cancelled 7.35
pCO2 38 H Cancelled 44 H
pO2 103 Cancelled 158 H
HCO3 23.5 Cancelled 24.3
O2 Delivery Level Not Reportable Cancelled
[2024-11-22 07:50] LABS: Glucose - Point of Care 90 mg/dl (70-99)
--- NOTE | 2024-11-22 08:00 | PTCARENOTE ---
Resumed care of patient from previous RN. AAOx3. SR hR70S. vss. A/V wires present but not connected. +PULSES, Trace edema. Lungs diminished bilaterally in bases. 96% RA. mediastinal x2 CT set to -20 suction draining serosANG. IS 1000. +Bowel
sounds. APPETITE FAIR. Cano draining clear yellow urine. 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 RIJ cordis. All lines leveled and zeroed. Right PIV patent and intact. insulin gtt per protocol. will be off by 11. see MAR for med dosing.
[2024-11-22 08:12] LABS: Glucose - Point of Care 99 mg/dl (70-99)
[2024-11-22] MEDS: LIDOCAINE 4% PATCH 1 PATCH TOPICAL (08:21)
[2024-11-22] MEDS: CYMBALTA DELAYED RELEASE 150 MG PO (08:21)
[2024-11-22] MEDS: LOW STRENGTH ASPIRIN 81 MG PO (08:21)
[2024-11-22] MEDS: VITAMIN C 500 MG PO (08:21)
[2024-11-22] MEDS: PROTONIX 40 MG PO (08:22)
[2024-11-22] MEDS: NEURONTIN 100 MG PO ×3 (08:22→20:55)
[2024-11-22] MEDS: SENOKOT-S 1 TABLET PO ×2 (08:22→20:55)
[2024-11-22] MEDS: FEOSOL 325 MG PO (08:22)
[2024-11-22] MEDS: MAGNESIUM OXIDE 500 MG PO ×2 (08:22→20:55)
[2024-11-22] MEDS: BACTROBAN 2% OINTMENT 1 APPLIC NASAL ×2 (08:23→20:56)
[2024-11-22] MEDS: NSS IV (10:22)
[2024-11-22 10:49] LABS: Glucose - Point of Care 84 mg/dl (70-99)
--- NOTE | 2024-11-22 11:33 | CM ---
Chart reviewed. Patient OOB sitting in the chair with her 4/5 daughters at bedside. Patient is independent of ADLS, lives with her and daughters in [place], 2 [place], 0 DME. Plan is for the patient to return home with CT Transitional RN. CM
to follow
[2024-11-22] MEDS: FERRLECIT 110 MG IV (13:43)
--- NOTE | 2024-11-22 14:17 | W.PN.ANS.POP ---
Anesthesia Post Operative
- Anesthesia Post Op Note
Vital Signs Stable-See Nursing Note: Yes
Airway Patent: Yes
Adequate Pain Control: Yes
Change in Mental Status: No
Current Postoperative Nausea & Vomiting: No
Anesthesia Complications: No
General Anesthetic Recall: No
Unplanned Admission: No
Post Op Hydration Adequate: Yes
--- NOTE | 2024-11-22 14:20 | W.PN.CD ---
Today's Communication / Plan
-
Incentive spirometry.
Ambulate.
BP too labile for diuresis, though all data points towards volume overload.
Pain/chest tube management per CT surgery.
Likely diuresis tomorrow.
Impression / Plan
-
Impression/Plan: 54F with obstructive hypertrophic cardiomyopathy with CASSIE of the mitral valve admitted for septal myomectomy and mitral valve repair/replacement.
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 Watkins
EP cardiology: Dr. Coker
#HOCM with CASSIE and severe MR
-Chronic, progressive and symptomatic.
-S/P myectomy and radical mitral valve repair (resection of secondary anterior mitral chords and suture from posterior papillary muscle to anterior leaflet) with Dr. Saravia, 11/22/2024.
-Routine post operative management.
-[place]/A-line discontinued.
-Incentive spirometry.
-Ambulate when appropriate.
-Pain/chest tube management per CT surgery.
-BP a little labile for diuresis. Probably start tomorrow.
Critical Care Time = 40 minutes.
Subjective/Interval History:
Surgery yesterday.
Weight up 4.2 kg from baseline (84.1 <-- 79.9).
Labile blood pressure.
CI 2.74 L/min/m2 (as of 4:14 AM).
SaO2 = 98% on 2LNC.
Hbg down to 8.1 (<-- 9.7 <-- 10.6).
Na down to 131.
DATA:
CT Surgery, 11/21/2024:
Procedure(s) Performed:
1. Standard sternotomy with aortic and bicaval cannulation
2. Septal myectomy through the aortic root (resected a 1 cm deep x 3 cm long by 2 cm wide segment of muscle)
3. Radical mitral valve repair through the aortic root [resection of secondary cords on the anterior leaflet and placement of a [place]-John suture from the most posterior papillary muscle head to the free margin of the anterior leaflet]
4. Placement temporary atrial ventricular pacing wires
5. Transesophageal echocardiography
Cardiac catheterization, 11/15/2024:
1. 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
2. Severe mitral valve regurgitation.
3. Mildly elevated filling pressures (LVEDP = 14 mmHg at 79.4 kg) with evidence of severe diastolic dysfunction (A wave to 40 mmHg).
4. Normal left ventricular size with hyperdynamic function and evidence of mid cavitary obliteration on left ventriculography, confirmed with mid cavitary gradient observed on slow pullback of catheter. There is no significant gradient between the
LVOT, aortic valve and aortic root.
Transthoracic echocardiogram, 08/18/2024:
Hyperdynamic left ventricular systolic function. Left ventricular ejection
fraction is 70-75%.
Severe concentric left ventricular hypertrophy.
LVOT gradient 91 mmHg at rest and 131mmHg with Valsalva.
Systolic anterior motion of the anterior mitral valve leaflet. Moderate/severe
eccentric mitral regurgitation.
Findings consistent with HOCM.
Compared to 04/06/24: LVOT gradients have increased. Prior LVOT gradient was 46
mmHg at rest, and 74 mmHg with Valsalva. Moderate/severe MR is stable.
Physical Exam
Vital Signs/Labs
Vital Signs
Temp Pulse Resp BP Pulse Ox
36.4 C 69 18 98/56 98
11/22/24 12:00 11/22/24 13:45 11/22/24 12:00 11/22/24 10:26 11/22/24 12:00
11/21/24 11/22/24 11/23/24
11:59 11:59 11:59
Actual Weight 79.9 kg 84.1 kg
11/22/24 03:17
11/22/24 03:17
PT 17.2 Sec (11.4-14.6) H 11/21/24 10:53
INR 1.38 11/21/24 10:53
APTT 30.4 Sec (23.4-35.0) 11/21/24 10:53
Magnesium 1.6 mg/dl (1.6-2.3) 11/22/24 03:17
Physical Exam
Constitutional: No acute distress and Comfortable
EENT: Anicteric and Moist mucous membranes
Cardiovascular: Rhythm & rate is regular, Pedal edema is absent, JVD pressure is normal, S1S2 is normal and Murmur/rub/gallop absent
Respiratory: Respiratory effort normal, Lungs clear to auscul., Wheeze Absent, Crackles Absent and Rhonchi Absent
GI: Soft, Distention absent, Flat, Non tender and Normal bowel sounds
Neuro/Psych: AO x 3
Data Reviewed
-
Date of Service: November 22, 2024
Medical Decision Making: Reviewed Test Results, Independent Historian Assessment and Test Interpretation
EKG: Tracing Personally Visualized and interpreted and Report Reviewed by me
Echo: Tracing Personally Visualized and interpreted and Report Reviewed by me
X-Ray/CT/US/MRI/NUC/PET: Image Personally Visualized and interpreted and Report Reviewed by me
Medical Tests (PFT, Pathology etc): Image Personally Visualized and interpreted and Report Reviewed by me
Labs: Labs Reviewed by me
[2024-11-22] MEDS: PACERONE 200 MG PO ×2 (16:46→20:56)
--- NOTE | 2024-11-22 17:06 | PTCARENOTE ---
urinated post bhatia removal. will continue to monitor.
--- NOTE | 2024-11-22 20:03 | PTCARENOTE ---
assumed care of patient from previous RN. AAOx3. SR HR 70s. VSS. A/V wires present but not connected. +PULSES, Trace edema. Lungs diminished bilaterally in bases. 96% RA. mediastinal x2 CT set to -20 suction draining serosang. IS 1000. +Bowel
sounds. voiding spontaneously. 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 RIJ cordis infusing KVO. Right PIV patent and intact. plan of care discussed questions encouraged. call queen within reach
[2024-11-22] MEDS: MELATONIN 15 MG PO (20:56)
[2024-11-22] MEDS: REMOVE LIDOCAINE PATCH 1 PATCH REMOVE (20:56)
[2024-11-23] VITALS (22 sets, daily range): BP systolic 82–130; BP diastolic 50–65; BMI 28.8
--- NOTE | 2024-11-23 00:05 | PTCARENOTE ---
VSS, NSR per tele monitor. pt c/o incision pain. See MAR. assessment unchanged otherwise
[2024-11-23] MEDS: DILAUDID 0.5 MG IV (00:47)
[2024-11-23] MEDS: ROXICODONE 5 MG PO ×4 (03:31→21:40)
--- NOTE | 2024-11-23 04:00 | PTCARENOTE ---
VSS, NSR per tele monitor, HR 80s. AM labs sent assessment unchanged
[2024-11-23 04:07] LABS: Hematocrit 25.0 % (37.0-47.0); Hemoglobin 8.7 g/dL (12.0-16.0); Mean Corp Hgb Conc. 34.8 g/dL (33.0-37.0); Mean Corpuscular Volume 89.3 fL (81.0-99.0); Platelet Count 142 10^3/uL (130-400); Red Cell Dist. Width 12.5 % (11.5-14.5)
[2024-11-23 04:22] LABS: Blood Urea Nitrogen 9 mg/dl (7-17); Calcium 8.8 mg/dl (8.4-10.2); Carbon Dioxide 26 mmol/L (22-30); Chloride 102 mmol/L (98-107); Estimated Creatinine Clearance 123 ml/min; Glucose 116 mg/dl (70-99); Magnesium 1.6 mg/dl (1.6-2.3); Potassium 4.2 mmol/L (3.5-5.1); Sodium 131 mmol/L (135-145); eGFR > 60.00
[2024-11-23] MEDS: TYLENOL 1000 MG PO ×3 (06:26→21:39)
--- NOTE | 2024-11-23 06:57 | W.PN.CD ---
Today's Communication / Plan
-
Consider afterload augmentation.
Incentive spirometry.
Ambulate.
Pain/chest tube management per CT surgery.
Impression / Plan
-
Impression/Plan: 54F with obstructive hypertrophic cardiomyopathy with CASSIE of the mitral valve admitted for septal myomectomy and mitral valve repair/replacement.
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 Watkins
EP cardiology: Dr. Coker
#HOCM with CASSIE and severe MR
-Chronic, progressive and symptomatic.
-S/P myectomy and radical mitral valve repair (resection of secondary anterior mitral chords and suture from posterior papillary muscle to anterior leaflet) with Dr. Saravia, 11/22/2024.
-Routine post operative management.
-[place]/A-line discontinued.
-Incentive spirometry.
-Ambulate.
-Pain/chest tube management per CT surgery.
-Hyperdynamic LV could also be due to decreased SVR. Patient may benefit from increased afterload (phenylephrine, midodrine) as her labs/weights all suggest she is volume overloaded.
Subjective/Interval History:
Weight up an additional 1.8 kg from yesterday, (6.0 kg above baseline).
Blood pressure stable overnight.
[facility] reports echo this AM showed hyperdynamic LV, concern for underfilling.
DATA:
CT Surgery, 11/21/2024:
Procedure(s) Performed:
1. Standard sternotomy with aortic and bicaval cannulation
2. Septal myectomy through the aortic root (resected a 1 cm deep x 3 cm long by 2 cm wide segment of muscle)
3. Radical mitral valve repair through the aortic root [resection of secondary cords on the anterior leaflet and placement of a [place]-John suture from the most posterior papillary muscle head to the free margin of the anterior leaflet]
4. Placement temporary atrial ventricular pacing wires
5. Transesophageal echocardiography
Cardiac catheterization, 11/15/2024:
1. 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
2. Severe mitral valve regurgitation.
3. Mildly elevated filling pressures (LVEDP = 14 mmHg at 79.4 kg) with evidence of severe diastolic dysfunction (A wave to 40 mmHg).
4. Normal left ventricular size with hyperdynamic function and evidence of mid cavitary obliteration on left ventriculography, confirmed with mid cavitary gradient observed on slow pullback of catheter. There is no significant gradient between the
LVOT, aortic valve and aortic root.
Transthoracic echocardiogram, 08/18/2024:
Hyperdynamic left ventricular systolic function. Left ventricular ejection
fraction is 70-75%.
Severe concentric left ventricular hypertrophy.
LVOT gradient 91 mmHg at rest and 131mmHg with Valsalva.
Systolic anterior motion of the anterior mitral valve leaflet. Moderate/severe
eccentric mitral regurgitation.
Findings consistent with HOCM.
Compared to 04/06/24: LVOT gradients have increased. Prior LVOT gradient was 46
mmHg at rest, and 74 mmHg with Valsalva. Moderate/severe MR is stable.
Physical Exam
Vital Signs/Labs
Vital Signs
Temp Pulse Resp BP Pulse Ox
37.1 C 81 18 125/51 97
11/23/24 04:00 11/23/24 04:00 11/23/24 04:00 11/23/24 03:39 11/23/24 04:00
11/21/24 11/22/24 11/23/24
11:59 11:59 11:59
Actual Weight 79.9 kg 84.1 kg 85.9 kg
11/23/24 03:40
11/23/24 03:40
PT 17.2 Sec (11.4-14.6) H 11/21/24 10:53
INR 1.38 11/21/24 10:53
APTT 30.4 Sec (23.4-35.0) 11/21/24 10:53
Magnesium 1.6 mg/dl (1.6-2.3) 11/23/24 03:40
Physical Exam
Constitutional: No acute distress and Comfortable
EENT: Anicteric and Moist mucous membranes
Cardiovascular: Rhythm & rate is regular, JVD pressure is normal, Pedal edema present, S1S2 is normal and Murmur/rub/gallop absent
Respiratory: Respiratory effort normal, Lungs clear to auscul., Wheeze Absent, Crackles Absent and Rhonchi Absent
GI: Soft, Distention absent, Flat, Non tender and Normal bowel sounds
Neuro/Psych: AO x 3
Data Reviewed
-
Date of Service: November 23, 2024
Medical Decision Making: Reviewed Test Results, Independent Historian Assessment, Test Interpretation and Review of Case with other Provider
EKG: Tracing Personally Visualized and interpreted and Report Reviewed by me
Echo: Tracing Personally Visualized and interpreted and Report Reviewed by me
X-Ray/CT/US/MRI/NUC/PET: Image Personally Visualized and interpreted and Report Reviewed by me
Medical Tests (PFT, Pathology etc): Image Personally Visualized and interpreted and Report Reviewed by me
Labs: Labs Reviewed by me
Old Records: Reviewed
--- NOTE | 2024-11-23 07:17 | W.PN.INTV ---
Today's Communication / Plan
Recommendations
Pain control
Out of bed to chair, ambulate
Follow hemoglobin
Once transferred to telemetry, we will sign off. Please call with questions
Assessment
-
54-year-old female with history of fatigue, palpitations, shortness of breath progressive times in the ER found to have significant hypertrophic interventricular septum, and mitral valve disease, now status post mitral valve repair and septal
myectomy 11/21/2024
S/p septal myectomy, mitral valve repair 11/21/2024
Severe asymmetric septal hypertrophy
Increased gradient of 91 at rest, increased at 131 with Valsalva
Moderate to severe mitral regurgitation
Progressive symptoms x 1 year
Intraoperative VF, self-resolving
On amiodarone
Status post intraoperative transfusion, 1 unit
Left bundle branch block postoperative EKG
Conditions present prior to admission
Hypertension
Anxiety
Insomnia
Plan/recommendations
At this time, patient appears comfortable
Off insulin drip
Primary complaint is pain
Chest tube drainage minimal
Pacer wires have been removed
Hemoglobin 8.7, stable
Chest x-ray without acute findings
Moving forward
Continue with management per CT surgery
Pain control, incentive spirometry
Follow hemoglobin
Transfuse per CT surgery protocol
Follow chest tube output
Head of bed elevated
Reviewed with critical care nursing
Once patient transferred to telemetry, we will sign off. Please call with questions
Subjective Dataa
Subjective Data
Date of Service:
Date of Service: November 23, 2024
Subjective:
Overall, patient appears to be comfortable. She denies nausea, abdominal pain. She is complaining of incisional discomfort. Family at bedside
Objective Data
Data Reviewed
Vital Signs / I&O / Oxygen:
Vital Signs
Temp Pulse Resp BP Pulse Ox
98.7 F 84 18 125/51 97
11/23/24 04:00 11/23/24 07:10 11/23/24 04:00 11/23/24 03:39 11/23/24 04:00
Intake and Output
11/22/24 11/23/24 11/24/24
06:59 06:59 06:59
Intake Total 3537.7 / 3565.1 554.5 / 554.5
Output Total 2004 420 / 420
Balance 1532.7 / 1510.1 134.5 / 134.5
SaO2 [P-SIMV] 97
SaO2 97
Nasal Cannula flow liters per 2
minute
Physical Exam
General: Comfortable
HEENT: Normocephalic
Cardiovascular: S1-S2, Regular Rhythm and Murmur (n)
Respiratory: Wheeze (n), Crackles (n), Rhonchi (n), Chest Tube and Other (Mild splinting during exam)
GI: Soft, Non Distended and Non Tender
Neurology: Awake, Alert and No Motor Deficits (Moves all extremities)
Skin: Cyanosis (n) and Rash (n)
Labs/Micro/Reports
Lab Data
11/23/24 03:40
11/23/24 03:40
--- NOTE | 2024-11-23 07:56 | W.PN.CT ---
Documented by User: Yaneth Ruby PA-C 11/23/24 08:09
Today's Communication / Plan
-
-pod #2
-no issues overnight, gets chronic headaches, suspicious for Migraine MAHER
-[address] 110/365 in 12/24 hrs
-Hg low, but stable - 8.7 today
-Platelets improving- 142 K today (from 127K)
-encourage IS, ambulate
Assessment / Plan
-
Assessment:
-S/P sternotomy/Septal myectomy through the aortic root (resected a 1 cm deep x 3 cm long by 2 cm wide segment of muscle)/Radical mitral valve repair through the aortic root [resection of secondary cords on the anterior leaflet and placement of a
[place]-John suture from the most posterior papillary muscle head to the free margin of the anterior leaflet], by Dr. Saravia, 11/21/24, pod#2
-Hypertrophic obstructive cardiomyopathy
-Systolic anterior motion of the mitral valve
-Severe LVOT gradient of over 100mmHg during provocation
-Severe mitral valve insufficiency secondary to CASSIE
-LVEF 65%
-Depression/anxiety
-Migraines
-Anemia
-Family history of premature related to cardiovascular disease
-S/P x 2
-Acute postop blood loss Anemia on chronic Anemia (transfused 1uPRBC)
-Acute postop atelectasis
-Acute postop hypovolemia with subsequent hypervolemia
-Acute postop bradycardia, PVC's
Discussed patient care with: Nursing and Care Team
Subjective
Procedure
S/P sternotomy/Septal myectomy through the aortic root (resected a 1 cm deep x 3 cm long by 2 cm wide segment of muscle)/Radical mitral valve repair through the aortic root [resection of secondary cords on the anterior leaflet and placement of a
[place]-John suture from the most posterior papillary muscle head to the free margin of the anterior leaflet], by Dr. Saravia, 11/21/24
-
Date of Service: November 23, 2024
Objective Data
-
Lab Results
11/23/24 03:40
11/23/24 03:40
PT 17.2 Sec (11.4-14.6) H 11/21/24 10:53
INR 1.38 11/21/24 10:53
APTT 30.4 Sec (23.4-35.0) 11/21/24 10:53
Vital Signs
Vital Signs
Temp Pulse Resp BP Pulse Ox
98.7 F 84 18 125/51 97
11/23/24 04:00 11/23/24 07:10 11/23/24 04:00 11/23/24 03:39 11/23/24 04:00
CT Intake/Output/Weight
11/22/24 11/23/24 11/23/24
18:59 06:59 18:59
Intake Total 454.5 / 554.5 100 / 554.5
Output Total 310 / 420 110 / 420
Balance 144.5 / 134.5 -10 / 134.5
SaO2: 97
Physical Exam
-
General: Awake, Oriented and AOx3
Cardiovascular: Regular rate & rhythm, Murmur (1/6 systolic) and No Rub
Respiratory: Decreased Breath Sounds
Sternum: Stable
Incision: Clean, Dry and Intact
Extremities: No Edema
Data Reviewed
-
Lab Results: Results Reviewed
Medications: Active Meds Reviewed
Chest X-Ray: Report Reviewed and Image Reviewed
ECG: Report Reviewed and Image Reviewed

Documented by User: [email or web address] Kemp 11/23/24 11:39
Assessment / Plan
-
Assessment:
-S/P sternotomy/Septal myectomy through the aortic root (resected a 1 cm deep x 3 cm long by 2 cm wide segment of muscle)/Radical mitral valve repair through the aortic root [resection of secondary cords on the anterior leaflet and placement of a
[place]-John suture from the most posterior papillary muscle head to the free margin of the anterior leaflet], by Dr. Saravia, 11/21/24, pod#2
-Hypertrophic obstructive cardiomyopathy
-Systolic anterior motion of the mitral valve
-Severe LVOT gradient of over 100mmHg during provocation
-Severe mitral valve insufficiency secondary to CASSIE
-LVEF 65%
-Depression/anxiety
-Migraines
-Anemia
-Family history of premature related to cardiovascular disease
-S/P x 2
-Acute postop blood loss Anemia on chronic Anemia (transfused 1uPRBC)
-Acute postop atelectasis
-Acute postop hypovolemia with subsequent hypervolemia
-Acute postop bradycardia, PVC's
-Acute postop hyponatremia
[2024-11-23] MEDS: PROTONIX 40 MG PO (08:00)
[2024-11-23] MEDS: FLEXERIL 5 MG PO ×3 (08:00→17:58)
[2024-11-23] MEDS: SENOKOT-S 1 TABLET PO ×2 (08:00→20:03)
--- NOTE | 2024-11-23 08:00 | PTCARENOTE ---
Assumed care of patient. Walking rounds completed with previous RN. Pt assessed while she was sitting in the chair. Pt alert and oriented x4. Rates sternal pain 4/10. Denies nausea and shortness of breath. MARISCAL with equal strength in all extremities.
1 assist to stand and standby assist to ambulate in the room to the bathroom. 1 assist to get in bed. SR with BBB with rates in the 80s. BP 97/58. Heart tones audible. Bilateral radial pulses palpable. Bilateral DP pulses weakly palpable. Epicardial
AV wires tied to temp pacer box. POX 97% on RA. Lungs diminished in the bases. IS encouraged-750mL achieved. Occasional nonproductive cough. Mediastinal chest tubes x2 y-sited to 1 atrium to -20cm suction draining serosanguineous fluid. No air leak,
tidaling, crepitus noted. Abdomen soft, round, nontender. Reports passing gas. Pt voiding clear yellow urine in the toilet. 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 CT dressing CDI. Right IJ cordis intact infusing NSS KVO. Right hand 20g PIV intact. See
MAR for medication administration. See worklist for complete nursing assessment. Plan of care reviewed and patient in agreement.
[2024-11-23] MEDS: FEOSOL 325 MG PO (08:01)
[2024-11-23] MEDS: VITAMIN C 500 MG PO (08:01)
[2024-11-23] MEDS: LIDOCAINE 4% PATCH 1 PATCH TOPICAL (08:01)
[2024-11-23] MEDS: LOW STRENGTH ASPIRIN 81 MG PO (08:01)
[2024-11-23] MEDS: MUCINEX 600 MG PO ×2 (08:01→20:03)
[2024-11-23] MEDS: PACERONE 200 MG PO ×3 (08:01→21:40)
[2024-11-23] MEDS: MAGNESIUM OXIDE 500 MG PO ×2 (08:01→20:09)
[2024-11-23] MEDS: NEURONTIN 100 MG PO ×3 (08:01→21:39)
[2024-11-23] MEDS: BACTROBAN 2% OINTMENT 1 APPLIC NASAL ×2 (08:02→20:05)
[2024-11-23] MEDS: NSS 500 IV (08:02)
[2024-11-23] MEDS: CYMBALTA DELAYED RELEASE 120 MG PO (08:09)
[2024-11-23] MEDS: CYMBALTA DELAYED RELEASE 30 MG PO (08:09)
[2024-11-23] MEDS: LOPRESSOR 12.5 MG PO ×2 (08:10→20:03)
--- NOTE | 2024-11-23 08:24 | W.PN.UPDATE ---
Update Note
Progress Note Update
No pacing required overnight. Two atrial and one bipolar ventricular wire removed without difficulty. Bedrest x 1 hour and Vital Signs x15 min x4.
--- NOTE | 2024-11-23 08:30 | PTCARENOTE ---
Epicardial AV wires pulled by CT PATIENT SCHEDULING COORDINATOR. q15min vitals taken.
--- NOTE | 2024-11-23 09:45 | PTCARENOTE ---
Verbal order from CT FORGE PRESS OPERATOR to d/c mediastinal chest tubes. Completed. Pt tolerated. Dressing applied. Pt resting in bed.
[2024-11-23] MEDS: FLEXBUMIN 50 IV ×2 (10:33→20:03)
--- NOTE | 2024-11-23 10:48 | CM ---
Chart reviewed. Patient OOB sitting in the chair, daughter at bedside. Patient is independent of ADLS, lives with her and daughter in a 2 STH, 2 TARA, 0 DME. Plan is for the patient to return home with CT Transitional RN. CM to follow
--- NOTE | 2024-11-23 11:33 | PN.CDI ---
CDI
- -
CDI:
Physician Documentation Request
Admit Date: 11/21/24 04:[address] Surgery,
Patient admitted for cardiomyopathy.
Laboratory Tests
11/14/24 11/22/24 11/23/24
12:43 03:17 03:40
Sodium 131 L 131 L 131 L
Based on the above, could you clarify in the progress notes, the appropriate diagnosis, if significant, that supports the above abnormalities and additional evaluation, monitoring and/or treatment rendered:
Hyponatremia
Abnormal lab value insignificant
Other
Use of terms such as suspected, likely, concern for, or probable (associated with a specific diagnosis that is being evaluated, monitored, or treated as if it exists) are acceptable and can be coded in the inpatient setting, when documented at the
time of discharge.
Thank you,
Christi Combs RN, BSN
CDI Specialist
Available via [facility] text
Please use your independent medical judgment in providing your response.
--- NOTE | 2024-11-23 12:00 | PTCARENOTE ---
Pt reassessed. SR with BBB on tele with rates in the 60s. BP 101/51. Pt states she feels dizzy when sitting, CT TREATMENT COUNSELOR notified. POX 98% on RA. Surgical sites stable. No other acute changes.
[2024-11-23] MEDS: FERRLECIT 110 MG IV (14:10)
[2024-11-23] MEDS: CALAN 120 MG PO (14:15)
--- NOTE | 2024-11-23 15:15 | PTCARENOTE ---
Pt reassessed. Standby assist to the bathroom. Ambulated in the caceres with standby assist for 150'. Tolerated. Assisted back to bed. SR with BBB on tele with rates in the 60s. BP 121/52. POX 95% on RA. Surgical sites stable. Pt reports not feeling
dizzy. C/o 4/10 sternal pain-see JUN.
[2024-11-23] MEDS: TORADOL 15 MG IV (20:04)
[2024-11-23] MEDS: REMOVE LIDOCAINE PATCH 1 PATCH REMOVE (20:05)
--- NOTE | 2024-11-23 20:05 | PTCARENOTE ---
assumed care of patient from previous RN. AAOx3. pt ambulating in caceres and in room. SR per tele monitor HR 70s. VSS. +PULSES, Trace edema. Lungs diminished bilaterally in bases. 97% RA. IS 1000. +Bowel sounds. voiding spontaneously. CT dressing
changed. 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 RIJ cordis infusing KVO. Right PIV patent and intact. plan of care discussed questions encouraged. call queen within reach
[2024-11-23] MEDS: MELATONIN 15 MG PO (21:38)
[2024-11-23] MEDS: ISOPTIN PO (23:04)
[2024-11-24] VITALS (17 sets, daily range): BP systolic 87–118; BP diastolic 45–60; BMI 28.7
--- NOTE | 2024-11-24 00:29 | PTCARENOTE ---
pt resting comfortably in bed, Sinus braxton-NSR HR 50-60s. assessment remains unchanged.
[2024-11-24] MEDS: ROXICODONE 5 MG PO (01:57)
[2024-11-24] MEDS: TYLENOL 1000 MG PO ×3 (06:02→22:09)
[2024-11-24 06:18] LABS: Blood Urea Nitrogen 12 mg/dl (7-17); Calcium 8.6 mg/dl (8.4-10.2); Carbon Dioxide 29 mmol/L (22-30); Chloride 100 mmol/L (98-107); Estimated Creatinine Clearance 124 ml/min; Glucose 81 mg/dl (70-99); Magnesium 2.0 mg/dl (1.6-2.3); Potassium 3.8 mmol/L (3.5-5.1); Sodium 130 mmol/L (135-145); eGFR > 60.00
[2024-11-24 06:34] LABS: Hematocrit 19.8 % (37.0-47.0); Hemoglobin 6.9 g/dL (12.0-16.0); Mean Corp Hgb Conc. 34.8 g/dL (33.0-37.0); Mean Corpuscular Volume 89.6 fL (81.0-99.0); Platelet Count 117 10^3/uL (130-400); Red Cell Dist. Width 12.6 % (11.5-14.5)
--- NOTE | 2024-11-24 06:56 | W.PN.CD ---
Today's Communication / Plan
-
Increase midodrine to 5 mg TID.
Repeat CBC prior to transfusion.
Check CVP through RIJ sheath.
She is going to need diuresis at some point.
Impression / Plan
-
Impression/Plan: 54F with obstructive hypertrophic cardiomyopathy with CASSIE of the mitral valve admitted for septal myomectomy and mitral valve repair/replacement.
Primary technology lead: Establishing care with Dr. Watkins
EP cardiology: Dr. Coker
#HOCM with CASSIE and severe MR
-Chronic, progressive and symptomatic.
-S/P myectomy and radical mitral valve repair (resection of secondary anterior mitral chords and suture from posterior papillary muscle to anterior leaflet) with Dr. Saravia, 11/22/2024.
-Routine post operative management.
-Incentive spirometry.
-Ambulate.
-Pain/chest tube management per CT surgery.
-Hyperdynamic LV could also be due to decreased SVR. Patient may benefit from increased afterload (phenylephrine, midodrine) as her labs/weights all suggest she is volume overloaded.
-Increase midodrine to 5 mg TID.
-Check CVP through RIJ sheath.
-She is going to need diuresis at some point.
#Anemia
-Acute, blood loss.
-Hbg down to 6.9 (8.7 yesterday).
-All cell lines are down - this may be a lab error vs. true worsening.
-Repeat CBC before transfusing. There may be meaningful blood loss vs. dilution.
Subjective/Interval History:
Chest tubes/pacing wires removed yesterday.
CBC - all cell lines down.
Weight down 0.5 kg.
Started on midodrine 2.5 mg TID.
Overnight BP's remain on the lower side.
She reports feeling well when waking up, currently slightly dizzy. BP currently normal.
DATA:
Transthoracic Echo, 11/23/2024:
SUMMARY
1. S/p septal myomectomy. No significant left ventricular outflow tract gradient.
2. Hyperdynamic left ventricular systolic function. Left ventricular ejection fraction is 70-75% by visual estimate.
3. Aortic stenosis without stenosis. Trace aortic regurgitation.
4. S/P mitral valve repair [resection of secondary cords on the anterior leaflet and placement of a [place]-John suture from the most posterior papillary muscle head to the free margin of the anterior leaflet]. Mild mitral regurgitation. Mean gradient
3 mmHg.
5. Compared to 08/18/24: patient has undergone septal myomectomy and mitral valve repair.
CT Surgery, 11/21/2024:
Procedure(s) Performed:
1. Standard sternotomy with aortic and bicaval cannulation
2. Septal myectomy through the aortic root (resected a 1 cm deep x 3 cm long by 2 cm wide segment of muscle)
3. Radical mitral valve repair through the aortic root [resection of secondary cords on the anterior leaflet and placement of a [place]-John suture from the most posterior papillary muscle head to the free margin of the anterior leaflet]
4. Placement temporary atrial ventricular pacing wires
5. Transesophageal echocardiography
Cardiac catheterization, 11/15/2024:
1. 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
2. Severe mitral valve regurgitation.
3. Mildly elevated filling pressures (LVEDP = 14 mmHg at 79.4 kg) with evidence of severe diastolic dysfunction (A wave to 40 mmHg).
4. Normal left ventricular size with hyperdynamic function and evidence of mid cavitary obliteration on left ventriculography, confirmed with mid cavitary gradient observed on slow pullback of catheter. There is no significant gradient between the
LVOT, aortic valve and aortic root.
Transthoracic echocardiogram, 08/18/2024:
Hyperdynamic left ventricular systolic function. Left ventricular ejection
fraction is 70-75%.
Severe concentric left ventricular hypertrophy.
LVOT gradient 91 mmHg at rest and 131mmHg with Valsalva.
Systolic anterior motion of the anterior mitral valve leaflet. Moderate/severe
eccentric mitral regurgitation.
Findings consistent with HOCM.
Compared to 04/06/24: LVOT gradients have increased. Prior LVOT gradient was 46
mmHg at rest, and 74 mmHg with Valsalva. Moderate/severe MR is stable.
Physical Exam
Vital Signs/Labs
Vital Signs
Temp Pulse Resp BP Pulse Ox
36.8 C 64 14 107/56 96
11/24/24 04:00 11/24/24 06:12 11/24/24 04:00 11/24/24 06:12 11/24/24 04:00
11/22/24 11/23/24 11/24/24
11:59 11:59 11:59
Actual Weight 84.1 kg 85.9 kg 85.5 kg
11/24/24 06:07
11/24/24 05:17
PT 17.2 Sec (11.4-14.6) H 11/21/24 10:53
INR 1.38 11/21/24 10:53
APTT 30.4 Sec (23.4-35.0) 11/21/24 10:53
Magnesium 2.0 mg/dl (1.6-2.3) 11/24/24 05:17
Physical Exam
Constitutional: No acute distress and Comfortable
EENT: Anicteric and Moist mucous membranes
Cardiovascular: Rhythm & rate is regular, JVD pressure is normal, Pedal edema present, S1S2 is normal and Murmur/rub/gallop absent
Respiratory: Respiratory effort normal and Other (Decreased at bases.)
GI: Soft, Distention absent, Flat, Non tender and Normal bowel sounds
Neuro/Psych: AO x 3
Data Reviewed
-
Date of Service: November 24, 2024
Medical Decision Making: Reviewed Test Results, Independent Historian Assessment and Test Interpretation
EKG: Tracing Personally Visualized and interpreted and Report Reviewed by me
Echo: Report Reviewed by me
X-Ray/CT/US/MRI/NUC/PET: Image Personally Visualized and interpreted and Report Reviewed by me
Medical Tests (PFT, Pathology etc): Image Personally Visualized and interpreted and Report Reviewed by me
Labs: Labs Reviewed by me
Old Records: Reviewed
--- NOTE | 2024-11-24 07:52 | W.PN.CT ---
Today's Communication / Plan
-
-pod #3
-no significant issues overnight. Hemodynamically and neurologically intact
-hypotensive overnight - asymptomatic
-Hg 6.9 today - will transfuse 1 pRBC
-s/p Echo 11/23
-on 11/23: started on 25% Albumin x3, Midodrine, and Verapamil. Will increase Midodrine to 5 tid
-encourage IS, OOB
Assessment / Plan
-
Assessment:
-S/P sternotomy/Septal myectomy through the aortic root (resected a 1 cm deep x 3 cm long by 2 cm wide segment of muscle)/Radical mitral valve repair through the aortic root [resection of secondary cords on the anterior leaflet and placement of a
[place]-John suture from the most posterior papillary muscle head to the free margin of the anterior leaflet], by Dr. Saravia, 11/21/24, pod#3
-Hypertrophic obstructive cardiomyopathy
-Systolic anterior motion of the mitral valve
-Severe LVOT gradient of over 100mmHg during provocation
-Severe mitral valve insufficiency secondary to CASSIE
-LVEF 65%
-Depression/anxiety
-Migraines
-Anemia
-Family history of premature related to cardiovascular disease
-S/P x 2
-Acute postop blood loss Anemia on chronic Anemia (transfused total 2uPRBC)
-Acute postop atelectasis
-Acute postop hypovolemia with subsequent hypervolemia
-Acute postop bradycardia, PVC's
-Acute postop hyponatremia
Discussed patient care with: Nursing and Care Team
Subjective
Procedure
S/P sternotomy/Septal myectomy through the aortic root (resected a 1 cm deep x 3 cm long by 2 cm wide segment of muscle)/Radical mitral valve repair through the aortic root [resection of secondary cords on the anterior leaflet and placement of a
[place]-John suture from the most posterior papillary muscle head to the free margin of the anterior leaflet], by Dr. Saravia, 11/21/24
-
Date of Service: November 24, 2024
Objective Data
-
Lab Results
11/24/24 06:07
11/24/24 05:17
PT 17.2 Sec (11.4-14.6) H 11/21/24 10:53
INR 1.38 11/21/24 10:53
APTT 30.4 Sec (23.4-35.0) 11/21/24 10:53
Vital Signs
Vital Signs
Temp Pulse Resp BP Pulse Ox
97.9 F 63 14 117/53 96
11/24/24 07:49 11/24/24 07:49 11/24/24 04:00 11/24/24 07:41 11/24/24 04:[address]
CT Intake/Output/Weight
11/23/24 11/24/24 11/24/24
18:59 06:59 18:59
Intake Total 970 / 990 20 / 990 200 / 200
Output Total 2110 / 2410 300 / 2410
Balance -1140 / -1420 -280 / -1420 200 / 200
SaO2: 96
Physical Exam
-
General: Awake and AOx3
Cardiovascular: Regular rate & rhythm, No Murmurs and No Rub
Respiratory: Decreased Breath Sounds
Sternum: Stable
Incision: Clean, Dry and Intact
Extremities: Other (trace edema b/l, 2+ DPs b/l)
Abdomen: soft, nondistended, + bowel sounds
Data Reviewed
-
Lab Results: Results Reviewed
Medications: Active Meds Reviewed
Chest X-Ray: Report Reviewed and Image Reviewed
ECG: Report Reviewed and Image Reviewed
--- NOTE | 2024-11-24 08:00 | PTCARENOTE ---
PT AAOx3 sitting in chair with her , minimal pain, Pt was able to ambulate to bathroom by herself,discussed with her and the goals for today
[2024-11-24] MEDS: CYMBALTA DELAYED RELEASE 120 MG PO (08:44)
[2024-11-24] MEDS: ISOPTIN 40 MG PO ×2 (08:44→22:08)
[2024-11-24] MEDS: MUCINEX 600 MG PO ×2 (08:45→20:04)
[2024-11-24] MEDS: VITAMIN C 500 MG PO (08:46)
[2024-11-24] MEDS: PACERONE 200 MG PO ×3 (08:46→22:09)
[2024-11-24] MEDS: FEOSOL 325 MG PO (08:46)
[2024-11-24] MEDS: CYMBALTA DELAYED RELEASE 30 MG PO (08:47)
[2024-11-24] MEDS: SENOKOT-S 1 TABLET PO ×2 (08:47→20:04)
[2024-11-24] MEDS: FLEXBUMIN 50 IV (08:48)
[2024-11-24] MEDS: LIDOCAINE 4% PATCH 1 PATCH TOPICAL (08:52)
[2024-11-24] MEDS: LOPRESSOR 12.5 MG PO ×2 (08:54→20:04)
[2024-11-24] MEDS: PROTONIX 40 MG PO (08:55)
[2024-11-24] MEDS: LOW STRENGTH ASPIRIN 81 MG PO (08:55)
[2024-11-24] MEDS: BACTROBAN 2% OINTMENT 1 APPLIC NASAL ×2 (08:56→20:04)
[2024-11-24] MEDS: MAGNESIUM OXIDE 500 MG PO (09:01)
[2024-11-24] MEDS: FLEXERIL 5 MG PO ×2 (09:01→19:19)
[2024-11-24 09:02] LABS: Hematocrit 20.8 % (37.0-47.0); Hemoglobin 7.4 g/dL (12.0-16.0); Mean Corp Hgb Conc. 35.6 g/dL (33.0-37.0); Mean Corpuscular Volume 89.3 fL (81.0-99.0); Platelet Count 135 10^3/uL (130-400); Red Cell Dist. Width 12.5 % (11.5-14.5)
[2024-11-24] MEDS: NEURONTIN PO (09:04)
[2024-11-24] MEDS: NSS IV (11:05)
--- NOTE | 2024-11-24 11:14 | CM ---
Chart reviewed. Patient OOB sitting in the chair. Patient receiving PRBC. Patient's at bedside. Patient is independent of ADLS, lives with her and daughters in a 2 STH, 2 TARA, 0 DME. Plan is for the patient to return home
with CT Transitional RN. CM to follow
--- NOTE | 2024-11-24 12:00 | PTCARENOTE ---
No new findings for this assessment at this time, Pt sitting comfortably with family, went for a walk around the unit
[2024-11-24] MEDS: LASIX 40 MG IV (12:57)
[2024-11-24] MEDS: KCL 40 MEQ PO (13:00)
[2024-11-24] MEDS: FERRLECIT 110 MG IV (13:03)
[2024-11-24] MEDS: ROXICODONE 2.5 MG PO ×2 (16:24→22:08)
[2024-11-24] MEDS: ISOPTIN PO (16:26)
--- NOTE | 2024-11-24 16:56 | PTCARENOTE ---
Pt assessment has no changes at this time, pt has been ambulating up to the chair and bed with ease
--- NOTE | 2024-11-24 20:00 | PTCARENOTE ---
Assumed care of patient at 1900. Patient found oob in chair with family at bedside at time of assessment. Patient is AOx4, follows commands appropriately, moves all extremities. Lung sounds are diminished in the bases, saO2 99% on RA. Heart sounds
are audible, patient is SR with BBB and long QT. Normal palpable pulses and trace edema present in BLE. Patient has active BS, pending postop BM, and is voiding in the bathroom. There is a sternal incision approx with surg adhesive HOWARD supported by
surg bra and 4x4 gauze dressing over CT wounds that is CDI. Patient has R IJ cordis receiving KVO and 22G in R hand. Given flexeril for muscle discomfort in chest which was effective on reassessment. Call queen within reach.
[2024-11-24] MEDS: MAGNESIUM OXIDE 400 MG PO (20:03)
[2024-11-24] MEDS: REMOVE LIDOCAINE PATCH 1 PATCH REMOVE (22:08)
[2024-11-24] MEDS: MELATONIN 15 MG PO (22:08)
[2024-11-25] VITALS (13 sets, daily range): BP systolic 87–135; BP diastolic 53–69; PULSE 66; O2SAT 96–98; BMI 28.5
--- NOTE | 2024-11-25 | PTCARENOTE ---
Patient reassessed. VSS. Remains SR with BBB long QT on the monitor. Given 2.5 Sheryl HS for mild pain. On reassessment patient was sleeping. Call queen within reach.
[2024-11-25 03:39] LABS: Hematocrit 29.1 % (37.0-47.0); Hemoglobin 10.2 g/dL (12.0-16.0); Mean Corp Hgb Conc. 35.1 g/dL (33.0-37.0); Mean Corpuscular Volume 88.4 fL (81.0-99.0); Platelet Count 134 10^3/uL (130-400); Red Cell Dist. Width 12.8 % (11.5-14.5)
[2024-11-25 03:55] LABS: Blood Urea Nitrogen 9 mg/dl (7-17); Calcium 8.7 mg/dl (8.4-10.2); Carbon Dioxide 30 mmol/L (22-30); Chloride 104 mmol/L (98-107); Estimated Creatinine Clearance 124 ml/min; Glucose 84 mg/dl (70-99); Magnesium 2.0 mg/dl (1.6-2.3); Potassium 4.0 mmol/L (3.5-5.1); Sodium 136 mmol/L (135-145); eGFR > 60.00
--- NOTE | 2024-11-25 05:05 | PTCARENOTE ---
Patient reassessed. VSS. Remains SR with BBB long QT. AM hygiene care provided. AM labs obtained. Assisted patient oob to chair. Pain well managed at this time. Call queen within reach.
[2024-11-25] MEDS: FLEXERIL 5 MG PO ×2 (06:39→17:12)
[2024-11-25] MEDS: TYLENOL 1000 MG PO ×3 (06:40→22:15)
--- NOTE | 2024-11-25 06:46 | W.PN.CT ---
Today's Communication / Plan
-
-pod #4
-no issues overnight
-s/p 1 pRBC on 11/24 for Hg 6.9. Pt states having less dizziness after getting transfusion. Hg is 10.2 today
-ambulated x3 without problems
-current meds (ASA, Amio, Lopressor, Verapamil 40 tid, Midodrine 5 tid, Vit C, Feosol, Mucinex, Cymbalta, Protonix)
-follow 2v-CXR
-encourage IS, ambulate
Assessment / Plan
-
Assessment:
-S/P sternotomy/Septal myectomy through the aortic root (resected a 1 cm deep x 3 cm long by 2 cm wide segment of muscle)/Radical mitral valve repair through the aortic root [resection of secondary cords on the anterior leaflet and placement of a
[place]-John suture from the most posterior papillary muscle head to the free margin of the anterior leaflet], by Dr. Saravia, 11/21/24, pod#4
-Hypertrophic obstructive cardiomyopathy
-Systolic anterior motion of the mitral valve
-Severe LVOT gradient of over 100mmHg during provocation
-Severe mitral valve insufficiency secondary to CASSIE
-LVEF 65%
-Depression/anxiety
-Migraines
-Anemia
-Family history of premature related to cardiovascular disease
-S/P x 2
-Acute postop blood loss Anemia on chronic Anemia (transfused total 2uPRBC)
-Acute postop atelectasis
-Acute postop hypovolemia with subsequent hypervolemia
-Acute postop bradycardia, PVC's
-Acute postop hyponatremia
Discussed patient care with: Nursing and Care Team
Subjective
Procedure
S/P sternotomy/Septal myectomy through the aortic root (resected a 1 cm deep x 3 cm long by 2 cm wide segment of muscle)/Radical mitral valve repair through the aortic root [resection of secondary cords on the anterior leaflet and placement of a
[place]-John suture from the most posterior papillary muscle head to the free margin of the anterior leaflet], by Dr. Saravia, 11/21/24
-
Date of Service: November 25, 2024
Objective Data
-
PT 17.2 Sec (11.4-14.6) H 11/21/24 10:53
INR 1.38 11/21/24 10:53
APTT 30.4 Sec (23.4-35.0) 11/21/24 10:53
Vital Signs
Vital Signs
Temp Pulse Resp BP Pulse Ox
99 F 59 20 117/60 98
11/25/24 00:00 11/25/24 00:00 11/25/24 00:00 11/24/24 22:08 11/25/24 00:00
CT Intake/Output/Weight
11/24/24 11/24/24 11/25/24
06:59 18:59 06:59
Intake Total 20 / 990 1570 / 1570
Output Total 300 / 2410 2875 / 4375 1500 / 4375
Balance -280 / -1420 -1305 / -2805 -1500 / -2805
SaO2: 98
Physical Exam
-
General: Awake and AOx3
Cardiovascular: Regular rate & rhythm, No Murmurs and No Rub
Respiratory: Decreased Breath Sounds
Sternum: Stable
Incision: Clean, Dry and Intact
Extremities: Edema +1
Abdomen: soft, nontender
Data Reviewed
-
Lab Results: Results Reviewed
Medications: Active Meds Reviewed
Chest X-Ray: Report Reviewed and Image Reviewed
ECG: Report Reviewed and Image Reviewed
--- NOTE | 2024-11-25 08:00 | PTCARENOTE ---
Resumed care of patient. Walking rounds completed with previous RN. Pt assessed while she was sitting in the chair. Pt alert and oriented x4. Rates sternal pain 4/10. Denies shortness of breath and nausea. MARISCAL with equal strength throughout.
Independent in the room. SR with BBB and prolonged QT with rates in the 60s. BP 124/55. Heart tones audible. Bilateral radial and DP pulses palpable. Generalized +1 edema. POX 98% on RA. Lungs diminished in the bases. IS encouraged-1250mL achieved.
No cough noted. Abdomen soft, round, nontender. +BS. Reports passing gas. Tolerating diet. Pt voiding independently, reports no issues. 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 Old chest tube sites approximated, HOWARD, no drainage. Right IJ cordis intact.
Right hand 20g PIV intact. See MAR for medication administration. See worklist for complete nursing assessment. Plan of care reviewed and patient in agreement.
[2024-11-25] MEDS: BACTROBAN 2% OINTMENT 1 APPLIC NASAL (08:22)
[2024-11-25] MEDS: CYMBALTA DELAYED RELEASE 120 MG PO (08:23)
[2024-11-25] MEDS: PACERONE 200 MG PO ×3 (08:23→22:15)
[2024-11-25] MEDS: MAGNESIUM OXIDE 400 MG PO ×2 (08:23→20:11)
[2024-11-25] MEDS: FEOSOL 325 MG PO (08:23)
[2024-11-25] MEDS: ROXICODONE 5 MG PO ×2 (08:23→20:22)
[2024-11-25] MEDS: VITAMIN C 500 MG PO (08:23)
[2024-11-25] MEDS: ISOPTIN 40 MG PO ×3 (08:23→22:16)
[2024-11-25] MEDS: LOW STRENGTH ASPIRIN 81 MG PO (08:23)
[2024-11-25] MEDS: LIDOCAINE 4% PATCH 1 PATCH TOPICAL (08:23)
[2024-11-25] MEDS: PROTONIX 40 MG PO (08:23)
[2024-11-25] MEDS: LOPRESSOR 12.5 MG PO ×2 (08:24→20:12)
[2024-11-25] MEDS: MUCINEX 600 MG PO ×2 (08:24→20:11)
[2024-11-25] MEDS: CYMBALTA DELAYED RELEASE 30 MG PO (08:24)
[2024-11-25] MEDS: NSS IV (08:24)
[2024-11-25] MEDS: SENOKOT-S 1 TABLET PO ×2 (08:24→20:11)
--- NOTE | 2024-11-25 09:03 | W.PN.CD ---
Today's Communication / Plan
-
Tolerating beta ruth, CCB and midodrine.
Agree with PO diuretics.
CT surgery aiming for discharge tomorrow.
Impression / Plan
-
Impression/Plan: 54F with obstructive hypertrophic cardiomyopathy with CASSIE of the mitral valve admitted for septal myomectomy and mitral valve repair/replacement.
Primary channeling machine operator: Establishing care with Dr. Watkins
EP cardiology: Dr. Coker
#HOCM with CASSIE and severe MR
-Chronic, progressive and symptomatic.
-S/P myectomy and radical mitral valve repair (resection of secondary anterior mitral chords and suture from posterior papillary muscle to anterior leaflet) with Dr. Saravia, 11/22/2024.
-Incentive spirometry.
-Ambulate.
-Continue metoprolol, verapamil, midodrine.
-Na normalized with diuretics.
-Agree with PO diuresis today.
#Anemia
-Acute, blood loss.
-Anemia was real though there was clearly a degree of lab error.
-Transfusion yesterday with robust response. Hbg this morning in 10.2.
Subjective/Interval History:
CVP 6 mmHg on transducer yesterday.
Repeat CBC showed a Hbg of 7.4 (not as bad as 6.9 but down 1.3 from 8.7 on day prior).
Transfused one unit of PRBC's overnight. Hbg improved to 10.2.
Furosemide 40 mg IV given yesterday.
I/O are negative 2500 mL. Weight remains up, but improved from prior (down 0.5 kg).
Blood pressure stable overnight.
SaO2 97% on RA.
Na has normalized with diruesis.
DATA:
Transthoracic Echo, 11/23/2024:
SUMMARY
1. S/p septal myomectomy. No significant left ventricular outflow tract gradient.
2. Hyperdynamic left ventricular systolic function. Left ventricular ejection fraction is 70-75% by visual estimate.
3. Aortic stenosis without stenosis. Trace aortic regurgitation.
4. S/P mitral valve repair [resection of secondary cords on the anterior leaflet and placement of a [place]-John suture from the most posterior papillary muscle head to the free margin of the anterior leaflet]. Mild mitral regurgitation. Mean gradient
3 mmHg.
5. Compared to 08/18/24: patient has undergone septal myomectomy and mitral valve repair.
CT Surgery, 11/21/2024:
Procedure(s) Performed:
1. Standard sternotomy with aortic and bicaval cannulation
2. Septal myectomy through the aortic root (resected a 1 cm deep x 3 cm long by 2 cm wide segment of muscle)
3. Radical mitral valve repair through the aortic root [resection of secondary cords on the anterior leaflet and placement of a [place]-John suture from the most posterior papillary muscle head to the free margin of the anterior leaflet]
4. Placement temporary atrial ventricular pacing wires
5. Transesophageal echocardiography
Cardiac catheterization, 11/15/2024:
1. 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
2. Severe mitral valve regurgitation.
3. Mildly elevated filling pressures (LVEDP = 14 mmHg at 79.4 kg) with evidence of severe diastolic dysfunction (A wave to 40 mmHg).
4. Normal left ventricular size with hyperdynamic function and evidence of mid cavitary obliteration on left ventriculography, confirmed with mid cavitary gradient observed on slow pullback of catheter. There is no significant gradient between the
LVOT, aortic valve and aortic root.
Transthoracic echocardiogram, 08/18/2024:
Hyperdynamic left ventricular systolic function. Left ventricular ejection
fraction is 70-75%.
Severe concentric left ventricular hypertrophy.
LVOT gradient 91 mmHg at rest and 131mmHg with Valsalva.
Systolic anterior motion of the anterior mitral valve leaflet. Moderate/severe
eccentric mitral regurgitation.
Findings consistent with HOCM.
Compared to 04/06/24: LVOT gradients have increased. Prior LVOT gradient was 46
mmHg at rest, and 74 mmHg with Valsalva. Moderate/severe MR is stable.
Physical Exam
Vital Signs/Labs
Vital Signs
Temp Pulse Resp BP Pulse Ox
36.7 C 61 18 128/59 97
11/25/24 03:11 11/25/24 04:00 11/25/24 03:11 11/25/24 02:58 11/25/24 03:11
11/23/24 11/24/24 11/25/24
11:59 11:59 11:59
Actual Weight 85.9 kg 85.5 kg 85 kg
11/25/24 03:07
11/25/24 03:07
PT 17.2 Sec (11.4-14.6) H 11/21/24 10:53
INR 1.38 11/21/24 10:53
APTT 30.4 Sec (23.4-35.0) 11/21/24 10:53
Magnesium 2.0 mg/dl (1.6-2.3) 11/25/24 03:07
Physical Exam
Constitutional: No acute distress and Comfortable
EENT: Anicteric and Moist mucous membranes
Cardiovascular: Rhythm & rate is regular, JVD pressure is normal, JVD present, S1S2 is normal and Murmur/rub/gallop absent
Respiratory: Respiratory effort normal, Lungs clear to auscul., Wheeze Absent, Crackles Absent and Rhonchi Absent
GI: Soft, Distention absent, Flat, Non tender and Normal bowel sounds
Neuro/Psych: AO x 3
Data Reviewed
-
Date of Service: November 25, 2024
Medical Decision Making: Reviewed Test Results, Independent Historian Assessment and Test Interpretation
EKG: Tracing Personally Visualized and interpreted and Report Reviewed by me
Echo: Report Reviewed by me
X-Ray/CT/US/MRI/NUC/PET: Image Personally Visualized and interpreted and Report Reviewed by me
Medical Tests (PFT, Pathology etc): Image Personally Visualized and interpreted and Report Reviewed by me
Labs: Labs Reviewed by me
Old Records: Reviewed
[2024-11-25] MEDS: LASIX 40 MG PO (09:15)
[2024-11-25] MEDS: KCL 20 MEQ PO (09:16)
--- NOTE | 2024-11-25 12:29 | PTCARENOTE ---
Pt reassessed. Independently walking the halls. SR with BBB with rates in the 60s. BP 132/65 after walking. POX 99% on RA. Surgical sites stable. Pt rates sternal pain 2/10. Voiding adequate amounts of clear yellow urine. No acute changes.
--- NOTE | 2024-11-25 16:24 | PTCARENOTE ---
Pt reassessed. Pt independent in the room. SB with BBB with rates 50s-60s. BP 101/60. Denies dizziness. POX 98% on RA. Surgical sites stable. No acute changes.
--- NOTE | 2024-11-25 20:00 | PTCARENOTE ---
Assumed care of patient at 1900. Patient found oob in chair at time of assessment. Patient is AOx4, follows commands appropriately, moves all extremities. Lung sounds are diminished in the bases, saO2 100 on RA. Heart sounds are audible, patient is
SR with BBB and long QT. Pulses are palpable and there is +1 generalized anasarca present. Patient has active BS in all four quadrants, is passing flatus, voids in toilet. Patient has sternal incision approx with surg adhesive DIRECTOR OF REHABILITATION AND WELLNESS. There is a R hand
PIV available for intermittent infusion. Call queen within reach.
[2024-11-25] MEDS: REMOVE LIDOCAINE PATCH 1 PATCH REMOVE (20:12)
[2024-11-25] MEDS: MELATONIN 15 MG PO (22:15)
[2024-11-26] MEDS: ROXICODONE 5 MG PO (00:25)
--- NOTE | 2024-11-26 00:30 | PTCARENOTE ---
Patient reassessed. VSS. Remains SR on the monitor. Given Roxyx2 for pain. No other complaints. Call queen within reach.
[2024-11-26 04:29] VITALS: BP 110/46
[2024-11-26 05:25] LABS: Hematocrit 24.3 % (37.0-47.0); Hemoglobin 8.2 g/dL (12.0-16.0); Mean Corp Hgb Conc. 33.7 g/dL (33.0-37.0); Mean Corpuscular Volume 93.1 fL (81.0-99.0); Platelet Count 197 10^3/uL (130-400); Red Cell Dist. Width 12.8 % (11.5-14.5)
--- NOTE | 2024-11-26 05:32 | PTCARENOTE ---
Patient reassessed. VSS. Remains SR on the monitor. AM labs obtained. Call queen within reach.
[2024-11-26 05:33] LABS: Blood Urea Nitrogen 7 mg/dl (7-17); Calcium 8.6 mg/dl (8.4-10.2); Carbon Dioxide 30 mmol/L (22-30); Chloride 105 mmol/L (98-107); Estimated Creatinine Clearance 124 ml/min; Glucose 72 mg/dl (70-99); Magnesium 2.0 mg/dl (1.6-2.3); Potassium 3.8 mmol/L (3.5-5.1); Sodium 137 mmol/L (135-145); eGFR > 60.00
[2024-11-26] MEDS: TYLENOL 1000 MG PO (05:51)
--- NOTE | 2024-11-26 05:58 | W.PN.CT ---
Today's Communication / Plan
-
-pod #5
-no issues overnight
-Hgb 8.2 this AM s/p transfusion 2 days ago
-BP stable on midodrine/verapamil/metoprolol combination
-given 40 mg PO Lasix yesterday, still had large volume of urine output 2450/5150 cc in 12/24 hrs
-current meds (ASA, Amio, Lopressor, Verapamil 40 tid, Midodrine 5 tid, Vit C, Feosol, Mucinex, Cymbalta, Protonix)
-encourage IS, ambulate
Assessment / Plan
-
Assessment:
-S/P sternotomy/Septal myectomy through the aortic root (resected a 1 cm deep x 3 cm long by 2 cm wide segment of muscle)/Radical mitral valve repair through the aortic root [resection of secondary cords on the anterior leaflet and placement of a
[place]-John suture from the most posterior papillary muscle head to the free margin of the anterior leaflet], by Dr. Saravia, 11/21/24, pod#5
-Hypertrophic obstructive cardiomyopathy
-Systolic anterior motion of the mitral valve
-Severe LVOT gradient of over 100mmHg during provocation
-Severe mitral valve insufficiency secondary to CASSIE
-LVEF 65%
-Depression/anxiety
-Migraines
-Anemia
-Family history of premature related to cardiovascular disease
-S/P x 2
-Acute postop blood loss Anemia on chronic Anemia (transfused total 2uPRBC)
-Acute postop atelectasis
-Acute postop hypovolemia with subsequent hypervolemia
-Acute postop bradycardia, PVC's
-Acute postop hyponatremia
Subjective
Procedure
S/P sternotomy/Septal myectomy through the aortic root (resected a 1 cm deep x 3 cm long by 2 cm wide segment of muscle)/Radical mitral valve repair through the aortic root [resection of secondary cords on the anterior leaflet and placement of a
[place]-John suture from the most posterior papillary muscle head to the free margin of the anterior leaflet], by Dr. Saravia, 11/21/24
-
Date of Service: November 26, 2024
Objective Data
-
Lab Results
11/26/24 04:45
11/26/24 04:45
PT 17.2 Sec (11.4-14.6) H 11/21/24 10:53
INR 1.38 11/21/24 10:53
APTT 30.4 Sec (23.4-35.0) 11/21/24 10:53
Vital Signs
Vital Signs
Temp Pulse Resp BP Pulse Ox
98.1 F 63 20 110/46 97
11/26/24 04:00 11/26/24 05:00 11/26/24 04:00 11/26/24 04:29 11/26/24 04:00
CT Intake/Output/Weight
11/25/24 11/25/24 11/26/24
06:59 18:59 06:59
Intake Total 960 / 2530 730 / 730
Output Total 0 / 5 2700 / 5150 2450 / 5150
Balance -1090 / -2395 -1970 / -4420 -2450 / -4420
SaO2: 97
Physical Exam
-
General: Awake and Oriented
Cardiovascular: Regular rate & rhythm and No Murmurs
Respiratory: Clear and Equal
Sternum: Stable
Incision: Clean, Dry and Intact
Extremities: No Edema
Data Reviewed
-
Lab Results: Results Reviewed
Medications: Active Meds Reviewed
Chest X-Ray: Report Reviewed
ECG: Report Reviewed
[2024-11-26 06:00] VITALS: BMI 28.3
[2024-11-26] MEDS: NSS IV (07:10)
[2024-11-26 07:58] VITALS: BP 119/62
[2024-11-26 08:00] VITALS: BP 119/62
--- NOTE | 2024-11-26 08:00 | PTCARENOTE ---
Resumed care of patient. Walking rounds completed with previous RN. Pt assessed while she was sitting in the chair. Pt alert and oriented x4. Rates sternal pain 1/10. Denies nausea, shortness of breath. MARISCAL with equal strength throughout.
Independent walking in the halls and in the room. SR with BBB with rates in the 60s. BP 119/62. Bilateral radial and DP pulses palpable. Generalized trace edema. POX 99% on RA. Lungs diminished in the bases. IS encouraged-1250ml achieved. No cough
noted. Abdomen soft, round, nontender. +BS +gas. Denies constipation. Pt voiding adequate amounts of clear yellow urine in the toilet. Reports no issues. Sternal incision approximated HOWARD. Old chest tube sites approximated, HOWARD. Right arm 20g PIV
intact. See MAR for medication administration. See worklist for complete nursing assessment. Plan of care reviewed and patient in agreement.
[2024-11-26] MEDS: LOPRESSOR 12.5 MG PO (08:01)
[2024-11-26] MEDS: MILK OF MAGNESIA 30 ML PO (08:01)
[2024-11-26] MEDS: ISOPTIN 40 MG PO (08:01)
[2024-11-26] MEDS: LIDOCAINE 4% PATCH 1 PATCH TOPICAL (08:01)
[2024-11-26] MEDS: PROTONIX 40 MG PO (08:01)
[2024-11-26] MEDS: CYMBALTA DELAYED RELEASE 120 MG PO (08:01)
[2024-11-26] MEDS: CYMBALTA DELAYED RELEASE 30 MG PO (08:01)
[2024-11-26] MEDS: MUCINEX 600 MG PO (08:01)
[2024-11-26] MEDS: FLEXERIL 5 MG PO (08:01)
[2024-11-26] MEDS: SENOKOT-S 1 TABLET PO (08:02)
[2024-11-26] MEDS: VITAMIN C 500 MG PO (08:02)
[2024-11-26] MEDS: LOW STRENGTH ASPIRIN 81 MG PO (08:02)
[2024-11-26] MEDS: MAGNESIUM OXIDE 400 MG PO (08:02)
[2024-11-26] MEDS: FEOSOL 325 MG PO (08:02)
[2024-11-26] MEDS: PACERONE 200 MG PO (08:02)
[2024-11-26] MEDS: KCL 40 MEQ PO (08:05)
--- NOTE | 2024-11-26 08:44 | W.DCSUMMARY ---
Discharge Summary
Discharge Data
Date of Admission: 11/21/24
Date of Discharge: 11/26/24
-
Pending Results: No
Hospital Course
Primary care physician: Rita Zamarripa
Outpatient medication care manager: Dr. Coker
Inpatient consultants: Cardiology, anesthesia
Procedures:
Sternotomy/Septal myectomy through the aortic root (resected a 1 cm deep x 3 cm long by 2 cm wide segment of muscle)/Radical mitral valve repair through the aortic root [resection of secondary cords on the anterior leaflet and placement of a
Folcroft-John suture from the most posterior papillary muscle head to the free margin of the anterior leaflet], by Dr. Saravia, 11/21/24
Primary Diagnosis:
-Hypertrophic obstructive cardiomyopathy
Secondary Diagnoses:
-Systolic anterior motion of the mitral valve
-Severe LVOT gradient of over 100mmHg during provocation
-Severe mitral valve insufficiency
-Depression/anxiety
-Migraines
-Anemia
-Family history of premature related to cardiovascular disease
-Status post section x 2
-Acute postop blood loss Anemia on chronic Anemia requiring blood transfusion
-Acute postop atelectasis
-Acute postop hypovolemia with subsequent hypervolemia
-Acute postop bradycardia, premature ventricular complexes
-Acute postop hyponatremia
HPI: The patient was evaluated in the outpatient office regarding surgery. She underwent rigorous preoperative workup and was deemed appropriate surgical candidate. She was admitted electively to undergo the above-mentioned procedure by Dr. Saravia.
Hospital course: Patient was admitted and underwent surgery with symptom myomectomy and mitral valve repair via sternotomy by Dr. Fer Saravia on 11/21/2024. Please refer to separately dictated operative report for complete details. Postoperatively
the patient progressed well. She was transferred to the intensive care unit on vasopressin at 0.02 as well as Precedex and insulin. She was extubated per usual postop protocol at 1532. Notably systolic anterior motion of the mitral valve is noted
intraoperatively and therefore she was maintained on no inotropes and appropriately volume resuscitated. She continued progress well throughout the evening of postop day 0.
Postoperative day #1: Vasoactive infusions were weaned off. Invasive monitoring lines were removed. Pain was controlled.
Postop day #2: She was given a small dose of Lasix. Chest tubes and wires were removed. She was given further volume resuscitation due to findings on surveillance transthoracic echocardiogram revealing an underfilled left ventricle. She was
started on midodrine to augment her blood pressure and allow for appropriate dosing of beta-blockers. She was also started on verapamil for afterload reduction.
Postoperative day #3: She required 1 unit of packed red blood cells for anemia. She was given 40 mg of IV Lasix following this. Again, her blood pressures remained on the lower side requiring an increase in the dose of midodrine. She was
symptomatic with these low blood pressures and complained of dizziness.
Postoperative day #4: She was given a dose of p.o. Lasix. Blood pressure remained stable on the midodrine, metoprolol, verapamil combination. She was ambulating independently. She felt great today.
Postoperative day #5: She is cleared for discharge to home. Given that her blood pressure has remained borderline for the last couple of days we will maintain her on the midodrine for now. This can likely be discontinued in the outpatient setting.
I reviewed discharge instructions and stent with the patient her questions to her satisfaction prior to her leaving today.
Home medication changes: Added verapamil, oxycodone, Tylenol, midodrine. I did explain that the midodrine will be a temporary measure as she recovers from surgery.
Please note the majority of this dictation was created using voice recognition software. Please excuse any phonetic or grammatical errors as a result.
Discharge Plan
-
Patient Disposition: Home (Routine Discharge)
Discharge Diagnosis/Procedures: -Status post sternotomy/Septal myectomy through the aortic root (resected a 1 cm deep x 3 cm long by 2 cm wide segment of muscle)/Radical mitral valve repair through the aortic root [resection of secondary cords on
the anterior leaflet and placement of a Folcroft-John suture from the most posterior papillary muscle head to the free margin of the anterior leaflet], by Dr. Saravia 11/21/24
-Hypertrophic obstructive cardiomyopathy
-Systolic anterior motion of the mitral valve
-Severe LVOT gradient of over 100mmHg during provocation
-Severe mitral valve insufficiency
-Depression/anxiety
-Migraines
-Anemia
-Family history of premature related to cardiovascular disease
-Status post section x 2
-Acute postop blood loss Anemia on chronic Anemia requiring blood transfusion
-Acute postop atelectasis
-Acute postop hypovolemia with subsequent hypervolemia
-Acute postop bradycardia, premature ventricular complexes
-Acute postop hyponatremia
Diet: No restrictions
Activity: No strenuous activity
Driving Restrictions: Not until seen by your Dr
Bathing Restrictions: OK to Shower
Other Services: Cardiac Rehab
Specialty Instructions: Weigh Daily- Call MD for wt gain/loss 3 lbs overnight/5 lbs in 1 week
Activity Restrictions/Additional Instructions:
Please call to make appointments for Phase II Cardiac Rehab:
1) [facility]: [phone] (9 min away)
2) [facility]: [phone] (18 min away)
ACTIVITY:
-No strenuous activity: no heavy lifting, pushing, pulling anything over 15 pounds for one month
-continue to use stairs as tolerated
DRIVING RESTRICTIONS:
-No driving for one month or until approved by your surgeon
WOUND CARE:
-Shower daily. Use soap & water.
-No lotions, creams or powders on incision area.
DIET:
-continue a low fat/low cholesterol diet.
-IF you are diabetic, continue carb controlled diet.
CARDIAC REHAB:
-Please make appointment to start in 5-6 weeks with your local hospital program. (See Cardiac Rehabilitation Discharge Booklet).
SPECIALTY INSTRUCTIONS:
-Weigh yourself daily. Call your physician for any weight gain/loss of 3 lbs overnight or 5 lbs in one week.
-REPORT any clicking noise or uneven appearance of your sternum to your surgeon immediately.
-If you smoke, you are instructed to quit. The [facility] smoking hotline phone number is [phone]
3) [facility]: [phone] (21 min away)
Referrals:
CT Transitional Care Nurse [Outside]
Referral Note: The Cardiothoracic Transitional Care Nurse will call you to set up a visit in 1-2 days.
Sudha Christine CRNP [Specified Professional Personl, Cardiology] - 01/04/25 10:40 am
Rita Zamarripa MD [Family Provider, Family Practice]
Fer Saravia MD [Active, Cardiac Surgery] - 12/25/24 2:30 pm
Prescriptions:
New
verapamil 40 mg Tablet
40 mg PO TID Qty: 90 2RF
midodrine 5 mg Tablet
5 mg PO TID@0800,1300,1800 Qty: 90 2RF
oxycodone 5 mg Tablet
5 mg PO Q6HPRN PRN (Reason: moderate pain) 7 Days Qty: 28 0RF
acetaminophen 325 mg Tablet
650 mg PO Q4HPRN PRN (Reason: mild pain,headache,temp >101F ) Qty: 30 0RF
Continued
zolpidem 5 MG tablet
5 mg PO HSPRN PRN (Reason: sleep)
aspirin 81 mg Tablet,Delayed Release (Dr/Ec)
81 mg PO DAILY
metoprolol succinate 25 mg Tablet Extended Release 24 Hr
25 mg PO DAILY
duloxetine 30 mg Capsule,Delayed Release(Dr/Ec)
150 mg PO DAILY
melatonin 10 mg Tablet
15 mg PO HS
Zepbound 15 mg/0.5 mL Pen Injector
15 mg SC QWEEK
Care Plan Goals
Care Plan Goals:
Problem: Readiness for enhanced knowledge related to diagnosis and treatment plan
Goal: Understand your diagnosis and treatment plan needs, including medications if applicable.
Instructions: Know your diagnosis, underlying causes and treatment plan options, including medications if applicable. Consult with your health care team to learn about your diagnosis and treatment plan, including medications if applicable.
Discharge Date and Time
Print Language: ARABIC
--- NOTE | 2024-11-26 10:30 | PTCARENOTE ---
Discharge order received. Pt showered, tolerated. PIV d/c. Discharge instructions reviewed. Pt states understanding. Taken out to car via wheelchair.
== END 2024-11-26 10:59 | disposition home or self-care (01) | DRG 220 ==
LOC: CVICU 04:56
PROVIDERS: Anesthesiology; Nurse Practitioner; Physician Assistant Medical; ADMITTING PHYSICIAN Thoracic Surgery (Cardiothoracic Vascular Surgery); CONSULT PHYSICIAN Internal Medicine Critical Care Medicine; FAMILY PHYSICIAN Family Medicine
PROC: 02QG0ZZ Repair Mitral Valve, Open Approach (ICD-10-PCS; 2024-11-21)
PROC: 02BM0ZZ Excision of Ventricular Septum, Open Approach (ICD-10-PCS; 2024-11-21)
PROC: 30233N1 Transfusion of Nonautologous Red Blood Cells into Peripheral Vein, Percutaneous Approach (ICD-10-PCS; 2024-11-21)
PROC: 5A1221Z Performance of Cardiac Output, Continuous (ICD-10-PCS; 2024-11-21)
PROC: B24BZZ4 Ultrasonography of Heart with Aorta, Transesophageal (ICD-10-PCS; 2024-11-21)
DX: I42.1 Obstructive hypertrophic cardiomyopathy (principal); D62 Acute posthemorrhagic anemia; J98.11 Atelectasis; E87.1 Hypo-osmolality and hyponatremia; I08.0 Rheumatic disorders of both mitral and aortic valves; E86.1 Hypovolemia; E87.70 Fluid overload, unspecified; I49.3 Ventricular premature depolarization; R00.1 Bradycardia, unspecified; I44.7 Left bundle-branch block, unspecified; F41.9 Anxiety disorder, unspecified; G62.9 Polyneuropathy, unspecified; F32.A Depression, unspecified; I10 Essential (primary) hypertension; G47.00 Insomnia, unspecified; G43.909 Migraine, unspecified, not intractable, without status migrainosus; Z82.49 Family history of ischemic heart disease and other diseases of the circulatory system
CPT/HCPCS: 36415; 71045; 71046; 74174; 75573; 80048; 80053; 81003; 81015; 82248; 82330; 82565; 82805; 82810; 82947; 82962; 83036; 83735; 84132; 84302; 84520; 85014; 85018; 85025; 85027; 85049; 85610; 85730; 86850; 86900; 86901; 86920; 87070; 87086; 88305; 93005; 93308; 93321; 93325; 94002; J2916; P9016; P9045; P9047; Q9967

== ENCOUNTER 2025-01-09 11:43 | Outpatient (RCR) | payer OTHER, SELFPAY | END 2025-01-09 23:59 | disposition home or self-care (01) | LOC: CRHB 11:43 | PROVIDERS: ATTENDING PHYSICIAN Internal Medicine Cardiovascular Disease | DX: Z95.2 Presence of prosthetic heart valve (principal) | CPT/HCPCS: 93798 ==